=== PATIENT | female | born 2000 | race Caucasian/White ===

== ENCOUNTER 2020-04-24 11:25 | Emergency (ER) | payer SELFPAY ==
--- OUTSIDE RECORDS SUMMARY | 2020-04-24 11:30 | XMS REPORT | Continuity of Care Document ---
:2000 Author Organization [facility] t Address [facility] [place] [address] Care Team Providers Name Role Phone Nguyen ARMIJO, Louisa Primary Care Physician Ghazal ARMIJO, S Attending Clinician Anton JACOB Attending Clinician Rayray ARMIJO, Conchis Attending Clinician Nuvia ARMIJO Attending Clinician Lydia Huber MD Attending Clinician Kt Hernandez MD Attending Clinician Denzel BARRERA Attending Clinician Vanesa Lopez MD Attending Clinician Matthew ARMIJO S Attending Clinician Korin Guillermo MD Attending Clinician Alexander De La Vega Attending Clinician Taylor ARMIJO Attending Clinician Kevin Brown MD Attending Clinician Haider Becerra DO Attending Clinician Caden ARMIJO Attending Clinician Maxwell De La Fuente MD Attending Clinician hCristo Waters MD Attending Clinician Suzy Attending Clinician Unavailable Va Attending Clinician Unavailable [facility] Attending Clinician Unavailable Cherry HOUGH Attending Clinician Unavailable Ramiro Hernandez MD Attending Clinician Misty ARMIJO, April Attending Clinician David Muñoz DO Attending Clinician Aden Zavala MD Attending Clinician Cony Rubio RN Attending Clinician Unavailable Allen Garnett MD Attending Clinician Tushar Attending Clinician [phone] Josiah Attending Clinician [phone] SHIRA Attending Clinician Unavailable Nguyen Attending Clinician [phone] Romel Attending Clinician Unavailable Tiffany Attending Clinician Unavailable Saurav A Attending Clinician [phone] Wil Attending Clinician Unavailable Shira Foote Attending Clinician [phone] Albaro Attending Clinician Unavailable Jessika Attending Clinician [phone] Rashaad Attending Clinician [phone] Claude Attending Clinician Unavailable Conchita Attending Clinician Unavailable Mayur Attending Clinician Unavailable Ilir Attending Clinician Unavailable Vanesa Kee Attending Clinician [phone] Oskar MedAdherleanne Attending Clinician [phone] Kirsten Gallo Attending Clinician [phone] Antonio Marino Attending Clinician Unavailable Rey Attending Clinician Unavailable Ilir Attending Clinician Unavailable Norm Attending Clinician [phone] Curry Attending Clinician Unavailable Karlie Attending Clinician Unavailable Isis Attending Clinician Unavailable Abilio Attending Clinician Unavailable Gabriel Attending Clinician Unavailable Solitario Attending Clinician Unavailable Trey Moya Attending Clinician Unavailable Kavita Joyce Attending Clinician Unavailable Vaishnavi Echavarria MD Admitting Clinician Vanesa Lopez MD Admitting Clinician Korin Guillermo MD Admitting Clinician Taylor ARMIJO Admitting Clinician HERNAN Admitting Clinician Unavailable CADEN Admitting Clinician Unavailable Tushar Unavailable [phone] Va Unavailable Unavailable Saurav, A Unavailable [phone] Conchita Unavailable Unavailable Shira Foote Unavailable [phone] Norm Unavailable [id number] Payers Payer Name Policy Type Policy Number Effective Date Expiration Date Trey pop COVID19 HRSA [id number] 2019 [place] UNINSURED 00:00:00 [facility] TESTING AND TREATMENT [id number] [facility] UNINSURED TESTING AND TREATMENT [id number]-[facility] f-Pay [id number] 2018 2019 [facility] 00:00:00 00:00:00 [facility] Health [id number] 2017 2018 [facility] 00:00:00 00:00:00 [facility] Health Problems Condition Condition Condition Status Onset Resolution Last Treating Co mments Source Name Details Category Date Date Treatment Clinician Date Intractabl Intractabl Disease [place] nausea e nausea 10-01 Method i and and 00:00: st vomiting vomiting 00 Intractabl Intractabl Disease Active [place] vomiting e vomiting 09-29 Ma thodi 00:00: st 00 Dehydratio Dehydratio Disease Active [place] n 6 Methodi 00:00: st 00 Non-intrac Non-intrac Disease [facility] table table 6 Methodi vomiting vomiting 00:00: st 00 Lactic Lactic Disease Active [place] acid acid 6 Methodi acidosis acidosis 00:00: st 00 Pyelonephr Pyelonephr Disease Active [place] itis itis 6 Methodi 00:00: st 00 RSV (acute RSV (acute Disease [facility] bronchioli bronchioli 07-23 [facility] tis due to tis due to 00:00: st respirator respirator 00 y y syncytial syncytial virus) virus) Acute Acute Disease Active [place] diarrhea diarrhea 07-23 Method i 00:00: st 00 Hypokalemi Hypokalemi Disease Active H kesha a a 07-23 Methodi 00:00: st 00 Astigmatis Condition Active 2019-03-19 Tushar Jermaine m, 03-19 11:21:48 Giovanni Communi bilateral 00:00: ty 00 Health Hyperopia, Condition Active 2019-03-19 Tushar Srideviacy bilateral 1- 11:21:48 Giovanni Commu ni 00:00: ty 00 Health RUQ Condition Active 2019-03-14 Va, L egacy abdominal 03-14 20:14:01 Olegario Commu ni rigidity 00:00: ty 00 Health Abdominal Condition Active 2019-03-14 Va, [facility] pain, 03-14 20:14:01 Olegario Communi right 00:00: ty upper 00 Health quadrant Contracept Condition Active 2018-022019-03-14 Saurav [facility] kailash 2-18 08:31:28 Ancelmo A Communi management 00:00: ty 00 Health Implantabl Condition Active 2018-022019-03-14 Saurav [facility] e 2-18 08:31:28 Ancelmo A Communi subdermal 00:00: ty contracept 00 Health kailash removal Dysmenorrh Condition Active 2018-022019-03-14 Saurav [facility] ea 1-19 08:31:28 Ancelmo A Communi 00:00: ty 00 Health Pelvic Condition Active 2018-022019-03-14 Ivis Mg gacy pain 1-19 08:31:28 Ancelmo A Communi 00:00: ty 00 Health Contracept Condition Active 2018-022019-03-14 Jermaine Arango ion 1-19 08:31:28 Berlondrik Comm uni 00:00: a ty 00 Health Abdominal Abdominal Disease Active 2018-02 Jairo ston pain pain 1-16 Methodi 00:00: st 00 Annual Condition Active 2018-08-29 Ivis Arango exam (18+) 08-29 17:56:22 Berlondrik Communi 00:00: a ty 00 Health DEPRESSIVE Condition Active 2018-08-29 Dary, [facility] DISORDER, 6-14 15:44:59 Armida Finch ommuni UNSPECIFIE 00:00: ty D 00 Health GENERALIZE Condition Active 2018-08-29 Sridevi Footeacy D ANXIETY 6-14 15:44:59 Armida Finch ommuni DISORDER 00:00: ty 00 Health BMI => Condition Active 2018-08-29 Jermaine Zheng 95%ile for 6-13 15:44:59 Asa Comm uni age 00:00: ty 00 Health Irritable Condition Active 2018-08-03 Jermaine Arango bowel 07-13 19:41:24 Berlondrik Comm uni syndrome 00:00: a ty 00 Health Overweight Condition Active 2018-08-29 Jermaine Arango 07-13 17:56:22 Berlondrik Comm uni 00:00: a ty 00 Health History of Condition Active 2018-07-13 Jermaine Mg ovarian 07-07 16:31:47 Ancelmo A Communi cyst 00:00: ty 00 Health Screening Condition Active 2018-07-07 Jermaine Mg examinatio 07-07 09:52:11 Ancelmo A Comm uni n for 00:00: ty venereal 00 Health disease Pelvic Condition Active 2018-07-07 Saurav Le gacy pain 07-07 09:52:11 Ancelmo A Communi 00:00: ty 00 Health Irregular Condition Active 2018-07-07 Jermaine Mg menses 07-07 09:52:11 Ancelmo A Communi 00:00: ty 00 Health Allergies, Adverse Reactions, Alerts This patient has no known allergies or adverse reactions. Family History Family Member Diagnosis Comments Start Date Stop Date Source Maternal grandmother Cancer [place] [facility] Social History Social Habit Start Date Stop Date Quantity Comments Source History [facility] Alcohol Std Drinks Method ist History [facility] Alcohol Binge [facility] Sex Assigned At [place] [facility] Tobacco use and 2019-09-30 2019-09-30 Never used [place] exposure 00:00:00 00:00:00 [facility] Alcohol intake 2019-09-30 2019-09-30 Current drinker of Evergig 00:00:00 00:00:00 alcohol (finding) Methodi st sexual orientation 2019-03-14 2019-03-14 Heterosexual Lega [facility] 08:05:32 08:05:32 Health social history E&M 2019-03-14 2019-03-14 Single. She is 1 of BasharJobs 08:05:32 08:05:32 4 half siblings, Health second oldest.In a relationship for over a year, stable. City: [place]. State: [place]. Lives with boyfriend at his parents. Highest education level: high school graduate. 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 Sexual orientation: Heterosexual. Gender identity: Female. Sexually Active: yes. The patient denies any hx of legal problems, or current problems with the law. Trying to figure out katt. Pt enjoys crafts, meditation, sitting outside drug use, illicit 2019-03-14 2019-03-14 Never [facility] 08:05:32 08:05:32 Health alcohol use 2019-03-14 2019-03-14 Never [facility] 08:05:32 08:05:32 Health social history 2019-03-14 2019-03-14 reviewed today [facility] reviewed E&M 08:05:32 08:05:32 Health assessment of 2019-03-14 2019-03-14 Adequate [facility] unity health literacy 08:05:32 08:05:32 Health ([facility] 2014 Standards, 3C10) is there any 2019-03-14 2019-03-14 No [facility] Commu nity chance that you 08:05:32 08:05:32 Health could be ? Patient was 2018-08-29 2018-08-29 Counseled for [facility] munity counseled for 15:07:51 15:07:51 sexual health Health sexual safety safety. home/family 2018-08-04 2018-08-04 Lives with Legamol means situation, 09:41:34 09:41:34 boyfriend at his Health assessment parents. family support 2018-08-04 2018-08-04 She is 1 of 4 [facility] 09:41:34 09:41:34 siblings, second Health oldest.In a relationship for over a year, stable. History [facility] 2018-06-09 2018-06-09 1 [place] Alcohol Frequency 00:00:00 00:00:[address] Smoking Status Start Date Stop Date Source Never smoker Anthony Methodis t Ex-smoker (finding) 2019-03-14 08:05:32 2019-03-14 08:05:32 Lega [facility] Health Medications Ordered Filled Start Stop Current Ordering Indication Dosage Frequency Signature Comments Components Source Medication Medication Date Date Medication? Clinician (SIG) Name Name traZODone 50mg QD Take 50 mg H kesha (DESYREL) 09-29 by mouth Metho di 50 MG 20:22: 00:[address] tablet 29 :00 Patient is out of med ondansetron 2019-0 2020- No 4mg Q8H Take 4 mg Cruz ODT 09-29 by mouth Methodi (ZOFRAN-ODT 20:22: 00:[address] ) 4 MG 17 :00 (eight) disintegrat hours as ing tablet needed for nausea or vomiting. naproxen 2019-0 2020- No 500mg Q.5D Take 500 Jairo ston (NAPROSYN) 09-29 mg by Methodi 500 MG 20:22: 00:[address] tablet 14 :00 (two) times a day as needed for mild pain. hydrOXYzine 2019-0 2020- No 25mg QD Take 25 mg Cruz (ATARAX) 25 09-29 by mouth Met hodi MG tablet 20:22: 00:[address] 11 :00 Patient is out of med hydrOXYzine 2019-0 2020- No 10mg QD Take 10 mg Cruz (ATARAX) 10 09-29 by mouth Met hodi MG tablet 20:22: 00:[address] 08 :00 morning. Pt is out of med FLUoxetine 2020-0 2020- No 40mg QD Take 40 mg Cruz (PROzac) 40 09-29 by mouth Met hodi MG capsule 20:22: 00:[address] 01 :00 Patient is out of med promethazin 2020-0 2020- No 25mg Q6H Take 1 Jairo ston e 09-28 tablet (25 Methodi (PHENERGAN) 00:00: 00:00 mg total) st 25 MG 00 :00 by mouth tablet every 6 (six) hours as needed for nausea or vomiting for up to 30 days. vancomycin 2020-0 2020- No 125mg Q.25D Take 2.5 Cruz (FIRVANQ) 6- 06-13 mL (125 mg Met hodi 50 mg/mL 00:00: 23:59 total) by st recon soln 00 :00 mouth 4 oral (four) solution times a day for 10 days. norgestimat 2020-0 2020- No 1{tbl} QD Take 1 [place] e-ethinyl 07-23 06-02 tablet by Meth rk estradiol 13:55: 00:[address] (SPRINTEC, 02 :00 daily. 28,) 0.25-35 mg-mcg per tablet FLUoxetine 2019-2019- No 40mg QD Take 40 mg Cruz (PROzac) 20 07-23 by mouth Met hodi MG capsule 13:54: 00:[address] 21 :00 ondansetron 2019-0 2020- No 4mg Q8H Take 4 mg Cruz ODT 07-21 by mouth Methodi (ZOFRAN-ODT 14:22: 00:[address] ) 4 MG 01 :00 (eight) disintegrat hours as ing tablet needed for nausea or vomiting. albuterol 2019- 2020- No 2{puff} Q4H Inhale 2 Cruz (PROAIR 07-21 puffs Methodi HFA) 90 00:00: 00:[address] mcg/actuati 00 :00 (four) on inhaler hours as needed for wheezing for up to 30 days. ondansetron 2019- 2020- No 4mg Q8H Take 1 Jairo ston ODT 07-21 tablet (4 Methodi (ZOFRAN-ODT 00:00: 00:00 mg total) st ) 4 MG 00 :00 by mouth disintegrat every 8 ing tablet (eight) hours as needed for nausea or vomiting for up to 3 days. aluminum-ma 2019-0 2020- No 15mL [id number] Take 15 mL Cruz gnesium 07-21 [id number] by mouth 3 Methodi hydroxide 00:00: 00:00 3D (three) st (MAALOX) 00 :00 times a 200-200 day before mg/5 mL meals for suspension 5 days. naproxen 2019-0 2020- No 500mg Q.5D Take 1 [place] (NAPROSYN) 07-21 tablet Method i 500 MG 00:00: 00:00 ([address] tablet 00 :00 total) by mouth 2 (two) times a day as needed (pain) for up to 10 days. sulfamethox 2019-0 2020- No 1{tbl} Q.5D Take 1 [place] azole-trime 4-13 -18 tablet by Ma thodi thoprim 00:00: 23:[address] (BACTRIM 00 :00 (two) DS) 800-160 times a mg per day for 5 tablet days. smx-tmp DS (BACTRIM) 800-160 mg tabs (1tab q12 D10) benzonatate 2019- No 100mg Q8H Take 1 [place] (TESSALON) 4-02 05-02 capsule Metho di 100 MG 00:00: 23:59 ([address] capsule 00 :00 total) by mouth every 8 (eight) hours for 30 days. amoxicillin 2019- No 1{tbl} Q.5D Take 1 [place] -pot 4-02 04-12 tablet by Methodi clavulanate 00:00: 23:[address] (AUGMENTIN) 00 :00 (two) 875-125 mg times a per tablet day for 10 days. (TRAZODONE 2018-02 Yes Armida Silva 1{Table 1xD Take 1/2-1 [facility] HCL) 50 MG 2-18 Dary t} tab at Com talon TABS 00:00: bedtime as ty 00 needed for Health sleep. SPRINTEC 28 2018-02- No Ancelmo A 1 pill L egacy (NORGESTIMA 2-18 12-18 Saurav daily po C ommuni TE-ETH 00:00: 00:00 ty ESTRADIOL) 00 :00 Health 0.25-35 MG-MCG TABS (FLUOXETINE Yes Armida Silva 2{Capsu 1xD Take 2 [facility] HCL) 20 MG 8-29 Dary le} capsules C ommuni CAPS 00:00: by mouth ty 00 daily. Health (DICYCLOMIN Yes Radha M TAKE ONE [facility] E HCL) 20 8-29 Ehdaie (1) Communi MG TABS 00:00: TABLET(S) ty 00 BY MOUTH Health THREE TIMES A DAY TO FOUR TIMES DAILY. (HYDROXYZIN Yes Armida Silva 1{Table 2xD Take 1/2 - [facility] E HCL) 10 7-15 Dary t} 1 tab by Co mmuni MG TABS 00:00: mouth ty 00 twice Health daily as needed for anxiety (HYDROXYZIN 2018- No Take 1/2 - [facility] E HCL) 25 6-14 07-15 1 tablet Commu ni MG TABS 00:00: 00:00 twice a ty 00 :00 day only Health as needed for anxiety or sleep. PROZAC 2019-0 2019- No 1{Capsu 1xD Take 1 Legac y (FLUOXETINE 08-0415 le} capsule by Stef basilio HCL) 10 MG 00:00: 00:00 mouth ty CAPS 00 :00 daily. Health Vital Signs Vital Name Observation Time Observation Value Comments Source Systolic blood 2019-10-04 19:44:40 143 mm[Hg] [place] [facility] pressure Diastolic blood 2019-10-04 19:44:40 95 mm[Hg] [place] [facility] pressure Heart rate 2019-10-04 19:44:40 64 /min [place] [facility] Body temperature 2019-10-04 19:44:40 36.89 [place] [facility] Respiratory rate 2019-10-04 19:44:40 16 /min [place] [facility] Oxygen saturation in 2019-10-04 19:44:40 100 /min [place] [facility] Arterial blood by Pulse oximetry Body height 2019-09-30 20:21:00 162.6 cm [place] [facility] Body weight 2019-09-30 20:21:00 75.9 kg [place] [facility] BMI 2019-09-30 20:21:00 28.72 kg/m2 [place] [facility] oxygen saturation, 2019-03-14 08:05:32 99 % [facility] oximetry Health blood pressure, 2019-03-14 08:05:32 79 mm[Hg] Legac y [facility] diastolic Health blood pressure, 2019-03-14 08:05:32 127 mm[Hg] Legac y [facility] systolic Health respiratory rate E&M 2019-03-14 08:05:32 18 /[facility] rate 2019-03-14 08:05:32 78 /min [facility] C ommunity Health temperature site 2019-03-14 08:05:32 oral [facility] temperature E&M 2019-03-14 08:05:32 98.6 [degF] Legac y [facility] Health height in 2019-03-14 08:05:32 166.37 [facility] centimeters E&M Health weight E&M 2019-03-14 08:05:32 169.50 [lb_av] [facility] weight in kilograms 2019-03-14 08:05:32 77.05 kg L [facility] E& Health pulse rate 2019-02-07 10:29:03 88 [facility] rate E&M 2019-02-07 10:29:03 16 /min [facility] Health blood pressure, 2019-02-07 10:29:03 66 mm[Hg] Legac [facility] diastolic Health blood pressure, 2019-02-07 10:29:03 117 mm[Hg] Legac [facility] systolic Health oxygen saturation, 2019-02-07 10:29:03 99 % [facility] oximetry Health weight E&M 2019-02-07 10:29:03 164 [lb_av] [facility] weight in kilograms 2019-02-07 10:29:03 74.55 kg L [facility] E& Health pulse rate 2019-02-07 09:25:02 75 /min [facility] Health blood pressure, 2019-02-07 09:25:02 85 mm[Hg] Legac [facility] diastolic Health blood pressure, 2019-02-07 09:25:02 125 mm[Hg] Legac [facility] systolic Health weight E&M 2019-02-07 09:25:02 164.38 [lb_av] [facility] Health weight in kilograms 2019-02-07 09:25:02 74.72 kg L [facility] E& Health height E&M 2019-02-07 09:25:02 65.5 [in_i] [facility] Health blood pressure, 2019-01-09 14:59:45 82 mm[Hg] Legac [facility] diastolic Health blood pressure, 2019-01-09 14:59:45 134 mm[Hg] Legac [facility] systolic Health pulse rate 2019-01-09 14:59:45 88 /min [facility] Health respiratory rate E&M 2019-01-09 14:59:45 15 /min [facility] oxygen saturation, 2019-01-09 14:59:45 99 % [facility] oximetry Health weight E&M 2019-01-09 14:59:45 158.38 [lb_av] [facility] Health weight in kilograms 2019-01-09 14:59:45 71.99 kg L [facility] E&M Health blood pressure, 2019-01-09 08:16:09 85 mm[Hg] Legac y [facility] diastolic Health blood pressure, 2019-01-09 08:16:09 135 mm[Hg] Legac [facility] systolic Health respiratory rate E&M 2019-01-09 08:16:09 25 /min [facility] Health oxygen saturation, 2019-01-09 08:16:09 98 % I[facility] oximetry Health pulse rate 2019-01-09 08:16:09 97 /min [facility] temperature site 2019-01-09 08:16:09 oral Lega [facility] Health temperature E&M 2019-01-09 08:16:09 98.5 [degF] Legac y [facility] Health weight E&M 2019-01-09 08:16:09 160 [lb_av] [facility] weight in kilograms 2019-01-09 08:16:09 72.73 kg L [facility] E&M Health height E&M 2019-01-09 08:16:09 65.50 [in_i] [facility] blood pressure, 2018-09-04 13:39:31 76 mm[Hg] Legac [facility] diastolic Health blood pressure, 2018-09-04 13:39:31 122 mm[Hg] Legac [facility] systolic Health pulse rate 2018-09-04 13:39:31 79 /[facility] weight E&M 2018-09-04 13:39:31 174.80 [lb_av] [facility] weight percentile 2018-09-04 13:39:31 93 Leg [facility] Health weight in kilograms 2018-09-04 13:39:31 79.45 kg L [facility] E& Health height percentile 2018-09-04 13:39:31 69 Leg [facility] Health height E&M 2018-09-04 13:39:31 65.56 [in_i] [facility] oxygen saturation, 2018-08-29 15:07:51 98 % I[facility] oximetry Health blood pressure, 2018-08-29 15:07:51 78 mm[Hg] Legac y [facility] diastolic Health blood pressure, 2018-08-29 15:07:51 120 mm[Hg] Legac y [facility] systolic Health respiratory rate E&M 2018-08-29 15:07:51 14 /min [facility] Health pulse rate 2018-08-29 15:07:51 87 /[facility] temperature E&M 2018-08-29 15:07:51 99.8 [degF] [facility] weight E&M 2018-08-29 15:07:51 177.60 [lb_av] [facility] Health weight percentile 2018-08-29 15:07:51 94 Leg [facility] Health weight in kilograms 2018-08-29 15:07:51 80.73 kg L [facility] E& Health height percentile 2018-08-29 15:07:51 69 Leg [facility] Health height E&M 2018-08-29 15:07:51 65.56 [in_i] [facility] pressure, 2018-08-04 09:41:34 75 mm[Hg] Legac [facility] diastolic Health blood pressure, 2018-08-04 09:41:34 120 mm[Hg] [facility] systolic Health pulse rate 2018-08-04 09:41:34 86 /[facility] weight E&M 2018-08-04 09:41:34 184.60 [lb_av] [facility] Health weight percentile 2018-08-04 09:41:34 95 Leg [facility] Health weight in kilograms 2018-08-04 09:41:[address] [facility] Health height percentile 2018-08-04 09:41:34 69 Leg [facility] Health height E&M 2018-08-04 09:41:34 65.56 [in_i] [facility] oxygen saturation, 2018-08-03 10:23:54 99 % [facility] oximetry Health blood pressure, 2018-08-03 10:23:54 72 mm[Hg] Legac [facility] diastolic Health blood pressure, 2018-08-03 10:23:54 115 mm[Hg] Legac [facility] systolic Health respiratory rate E&M 2018-08-03 10:23:54 16 /min [facility] Health pulse rate 2018-08-03 10:23:54 67 /[facility] 2018-08-03 10:23:54 oral Lega [facility] Health temperature E&M 2018-08-03 10:23:54 98.1 [degF] Legac [facility] Health height in 2018-08-03 10:23:54 165.10 [facility] E[facility]M Health height percentile 2018-08-03 10:23:54 61 Leg [facility] Health weight E&M 2018-08-03 10:23:54 183.60 [lb_av] [facility] Health weight percentile 2018-08-03 10:23:54 95 Leg [facility] weight in kilograms 2018-08-03 10:23:54 83.45 kg L [facility] E& Health oxygen saturation, 2018-07-13 15:53:58 99 % [facility] oximetry Health blood pressure, 2018-07-13 15:53:58 75 mm[Hg] Legac [facility] diastolic Health blood pressure, 2018-07-13 15:53:58 134 mm[Hg] Legac [facility] systolic Health respiratory rate E&M 2018-07-13 15:53:58 18 /min [facility] pulse rate 2018-07-13 15:53:58 79 /min [facility] temperature site 2018-07-13 15:53:58 oral Lega [facility] Health temperature E&M 2018-07-13 15:53:58 99.7 [degF] [facility] weight E&M 2018-07-13 15:53:58 185.13 [lb_av] [facility] weight percentile 2018-07-13 15:53:58 96 Leg [facility] weight in kilograms 2018-07-13 15:53:58 84.15 kg L [facility] E& Health height percentile 2018-07-13 15:53:58 61 Leg [facility] height E&M 2018-07-13 15:53:58 65 [in_i] [facility], 2018-07-07 09:10:26 98 % [facility] blood pressure, 2018-07-07 09:10:26 71 mm[Hg] Legac [facility] diastolic Health blood pressure, 2018-07-07 09:10:26 135 mm[Hg] Legac [facility] systolic Health respiratory rate E&M 2018-07-07 09:10:26 18 /min [facility] pulse rate 2018-07-07 09:10:26 85 /min [facility] temperature site 2018-07-07 09:10:26 oral Lega cy [facility] Health temperature E&M 2018-07-07 09:10:26 98.3 [degF] Legac y [facility] weight E&M 2018-07-07 09:10:26 186.38 [lb_av] [facility] 2018-07-07 09:10:26 96 Leg acy [facility] weight in kilograms 2018-07-07 09:10:26 84.72 kg L [facility] E& Health height in 2018-07-07 09:10:26 [facility] height percentile 2018-07-07 09:10:26 61 Leg [facility] Procedures Procedure Date / Time Performing Clinician Source Performed CT ANGIOGRAM PE CHEST 2019-10-04 18:42:03 Shahid Negrete [facility] XR ABDOMEN 1 2019-10-04 17:03:08 Shahid Negrete [facility]ist TROPONIN 2019-10-04 12:17:00 Shahid Negrete [facility]ist CBC HEMOGRAM 2019-10-04 12:17:00 Shahid Negrete odist BASIC METABOLIC PANEL 2019-10-04 12:17:00 Shahid Negrete [facility] MAGNESIUM LEVEL 2019-10-04 12:17:00 Shahid Negrete Meth odist ESTIMATED GFR 2019-10-04 12:17:00 Shahid Negrete [facility]ist HEMOGLOBIN A1C 2019-10-04 12:17:00 Shahid Negrete Meth odist TROPONIN 2019-10-04 05:25:00 Shahid Negrete Meth odist TROPONIN 2019-10-03 23:54:00 Shahid Negrete Meth odist FL UGI W OR WO KUB 2019-10-03 12:05:13 Darin Becerril on [facility] XR CHEST 2 VW 2019-10-03 12:04:44 Shahid Negrete [facility]ist CBC HEMOGRAM 2019-10-03 09:20:00 Caden, Shahid Cruz [facility]ist BASIC METABOLIC PANEL 2019-10-03 09:20:00 [facility] D-DIMER 2019-10-03 09:20:00 Caden, Shahid Cruz [facility] TROPONIN 2019-10-03 09:20:00 Caden, Shahid [place] [facility] B NATRIURETIC PEPTIDE 2019-10-03 09:20:00 Caden, Shahidpooja Yadav n [facility] ESTIMATED GFR 2019-10-03 09:20:00 Caden, Shahid [place] [facility] THYROID STIMULATING HORMONE 2019-10-03 09:20:00 Caden, Shahid Cruz [facility] MAGNESIUM LEVEL 2019-10-03 09:20:00 Caden, Shahid [place] [facility] ECG 12-LEAD 2019-10-03 08:36:03 Caden, Shahid [place] [facility] MRI CHOLANGIOGRAM WO 2019-10-02 08:10:16 Caden, Shahid Cruz [facility] CONTRAST CBC HEMOGRAM 2019-10-02 06:38:00 Caden, Shahid [facility]ist COMPREHENSIVE METABOLIC 2019-10-02 06:38:00 Caden, Shahidpooja cervantes [facility] PANEL ESTIMATED GFR 2019-10-02 06:38:00 Caden, Shahid [place] MAGNESIUM LEVEL 2019-10-02 06:38:00 Caden, Shahid [facility] US PELVIC TRANSABDOMINAL 2019-10-01 22:24:27 Caden, Shahid Jairo starks [facility] US PELVIC TRANSVAGINAL 2019-10-01 22:24:27 [facility] US ABDOMEN COMPLETE 2019-10-01 22:19:18 Caden, Shahid Cruz [facility] CBC HEMOGRAM 2019-10-01 09:30:00 Caden, Shahid Cruz [facility]ist COMPREHENSIVE METABOLIC 2019-10-01 09:30:00 [facility] PANEL ESTIMATED GFR 2019-10-01 09:30:00 Caden Shahid [place] [facility] HCG QUALITATIVE, SERUM 2019-09-30 15:59:00 Bry Hazel on [facility] SCREEN Felipe ALCOHOL LEVEL, BLOOD 2019-09-30 15:59:00 Bry Hazel Felipe COVID-19 QUALITATIVE PCR 2019-09-30 15:34:00 Bry Hazel [facility] Felipe HC COMPLETE BLD COUNT 2019-09-30 15:19:00 Bry Hazel [facility] W/AUTO DIFF Felipe COMPREHENSIVE METABOLIC 2019-09-30 15:19:00 Bry Hazel [facility] PANEL Felipe LIPASE LEVEL 2019-09-30 15:19:00 Bry Hazel Meth odist Felipe ESTIMATED GFR 2019-09-30 15:19:00 Bry Hazel Meth odist Felipe CREATINE KINASE, TOTAL 2019-09-30 15:19:00 Bry Hazel on [facility] (CPK) Felipe CT ABDOMEN PELVIS W 2019-09-29 12:31:22 Armida Waters CONTRAST Christo HC COMPLETE BLD COUNT 2019-09-29 11:14:00 Armida Waters [facility] W/AUTO DIFF Christo COMPREHENSIVE METABOLIC 2019-09-29 11:14:00 Armida Waters [facility] PANEL Christo LIPASE LEVEL 2019-09-29 11:14:00 Armida Waters Meth odist Christo CREATINE KINASE, TOTAL 2019-09-29 11:14:00 Armida Waters on [facility] (CPK) Christo ESTIMATED GFR 2019-09-29 11:14:00 Armida Waters Meth odist Christo URINE CULTURE 2019-09-29 11:01:00 Armida Waters odist Christo URINALYSIS SCREEN AND 2019-09-29 10:43:00 Armida Waters [facility] MICROSCOPY, WITH REFLEX TO Christo CULTURE URINE DRUGS OF ABUSE SCREEN 2019-09-29 10:43:00 Armida Watersist Christo HCG QUALITATIVE, URINE 2019-09-29 10:43:00 Armida Waters on [facility] SCREEN Christo ECG ED PRELIMINARY 2019-09-29 10:34:14 Armida Waters M ethodist INTERPRETATION Christo ECG 12-LEAD 2019-09-29 10:27:13 Mushtaq Pham Met hodist HC COMPLETE BLD COUNT 2019-07-25 04:15:00 Howard Waller [facility] W/AUTO DIFF Maggie COMPREHENSIVE METABOLIC 2019-07-25 04:15:00 HerveHoward neil Matthew jackson [facility] PANEL Maggie LIPASE LEVEL 2019-07-25 04:15:00 Howard Waller Ma najmaodist Serrano ESTIMATED GFR 2019-07-25 04:15:00 HerveHoward neil Ma yang Serrano GASTROINTESTINAL PANEL 2019-07-24 23:47:00 ChristinHoward Jairo Serrano LACTIC ACID LEVEL, SEPSIS - 2019-07-24 13:14:00 New RiegelNii NOW AND REPEAT 2X EVERY 3 HOURS LACTIC ACID LEVEL, SEPSIS - 2019-07-24 11:35:00 New RiegelNii NOW AND REPEAT 2X EVERY [address] ABDOMEN PELVIS W 2019-07-24 11:14:55 New RiegelNii CONTRAST US PELVIC TRANSABDOMINAL 2019-07-24 10:45:00 New Riegel, Nii Irving US PELVIC TRANSVAGINAL 2019-07-24 10:45:00 New RiegelNii URINE CULTURE 2019-07-24 08:26:00 New RiegelNii julien Ma thodi BLOOD CULTURE, AEROBIC & 2019-07-24 08:07:00 New RiegelNii ANAEROBIC URINE DRUGS OF ABUSE SCREEN 2019-07-24 08:07:00 Darryl Hernandez BLOOD CULTURE, AEROBIC & 2019-07-24 08:06:00 New RiegelNii ANAEROBIC URINALYSIS SCREEN AND 2019-07-24 07:51:00 New RiegelNii MICROSCOPY, WITH REFLEX TO CULTURE HCG QUALITATIVE, URINE 2019-07-24 07:51:00 New RiegelNii SCREEN HC COMPLETE BLD COUNT 2019-07-24 07:00:00 New RiegelNii W/AUTO DIFF COMPREHENSIVE METABOLIC 2019-07-24 07:00:00 New RiegelNii PANEL LIPASE LEVEL 2019-07-24 07:00:00 New RiegelNii Ma najmaodist ESTIMATED GFR 2019-07-24 07:00:00 Nii Smith Ma thodist LACTIC ACID LEVEL, SEPSIS - 2019-07-24 07:00:00 Nii Smith NOW AND REPEAT 2X EVERY 3 HOURS CREATINE KINASE, TOTAL 2019-07-24 07:00:00 Nii Smith (CPK) [facility] CR[facility], E/M 30-74 2019-07-24 06:50:41 Nii Smith MINUTES XR CHEST 1 VW PORTABLE 2019-07-22 12:37:14 Misty, Michelle cervantes [facility] ECG ED PRELIMINARY 2019-07-22 12:37:08 MistyMichelle merlos INTERPRETATION INFLUENZA ANTIGEN TEST, 2019-07-22 12:10:00 MistyMichelle merlos REFLEX NEGATIVE TO RPP RESPIRATORY PATHOGEN PANEL 2019-07-22 12:10:00 Michelle Storeyist WITH COVID-19 ECG 12-LEAD 2019-07-22 12:01:25 MistyMichelle merlos Met hodist COVID-19 QUALITATIVE PCR 2019-07-22 12:00:00 MistyMichelle merlos [facility] HC COMPLETE BLD COUNT 2019-07-22 11:55:00 Michelle Storey on [facility] W/AUTO DIFF COMPREHENSIVE METABOLIC 2019-07-22 11:55:00 MistyMichelle merlos [facility] PANEL TROPONIN 2019-07-22 11:55:00 Michelle Storye Met hodist B NATRIURETIC PEPTIDE 2019-07-22 11:55:00 MistyMichelle merlos on [facility] ESTIMATED GFR 2019-07-22 11:55:00 Michelle Storey Met hodist HCG QUALITATIVE, SERUM 2019-07-22 11:55:00 Michelle Storey [facility] SCREEN URINE CULTURE 2019-06-04 13:18:00 Gaston Muñozist B. HCG QUALITATIVE, URINE 2019-06-04 13:02:00 Gaston Muñozist SCREEN B. URINALYSIS SCREEN AND 2019-06-04 13:02:00 Gaston Muñoz MICROSCOPY, WITH REFLEX TO B. CULTURE COVID BIOREF (NCOVB) 2019-05-24 17:40:00 Bry Hazelony XR CHEST 1 VW 2019-05-24 17:25:37 Bry Hazel odist Felipe GROUP A STREP, RAPID 2019-05-24 17:02:00 Bry Hazel ANTIGEN Felipe INFLUENZA ANTIGEN TEST, 2019-05-24 17:02:00 Bry Hazel REFLEX NEGATIVE TO RPP Felipe STREP SCREEN CULTURE 2019-05-24 17:02:00 Bry Hazel RESPIRATORY PATHOGEN PANEL 2019-05-24 17:02:00 Bry Hazel WITH COVID-19 Felipe Routine ophthalmological 2019-03-19 10:40:40 Giovanni Finley [facility] examination including Health refraction; new patient Diagnostic evaluation with 2018-08-04 10:59:17 Armida Foote Ma [facility] [address] [facility] Planned Activity Planned Date Details Comments Source Future Scheduled 2019-11-14 Screening for [facility] thodist Test 00:00:00 malignant neoplasm of cervix (procedure) [code = 008610248] Future Scheduled 2019-09-22 INFL[place]ENZA VACCINE [place] [facility] Test 00:00:00 [code = INFLUENZA VACCINE] Future Scheduled 2016 Hepatitis C Cruz Met hodist Test 00:00:00 screening (procedure) [code = 132633365] Future Scheduled 2014 CH[place]DIA SCREENING [place] [facility] Test 00:00:00 [code = CHLAMYDIA SCREENING] Future Scheduled 2014 COVID-19 VACCINE (1 [place] [facility] Test 00:00:00 of 2) [code = COVID-19 VACCINE (1 of 2)] Encounters Start End Encounter Admission Attending Care Care Encounter Source Date/Time Date/Time Type Type Clinicians Facility Department ID 2020-04-22 2020-04-22 Emergency Ghazal, TRAUMA [id number] 07:59:00 12:50:00 [facility] [id number] [id number] 2020-04-20 2020-04-20 Emergency Walton, TRAUMA 1.2.840.114 [id number] 14:46:00 18:33:00 [facility] [id number] 4.2.7.2.686 [id number] 2020-04-18 2020-04-19 Emergency Mary Harman 1.2.84 0.114 [id number] 21:04:00 17:30:00 Venkatesh Seo Conchis Marcelina 350.1.13.10 [facility] 4.2.7.2.686 [id number] 2020-03-05 2020-03-06 Emergency [place], Layo TRAUMA 1.2.840. 114 [id number] 23:03:00 11:08:00 Mary Ann teran [place] 350.1. 13.10 4.2.7.2.686 [id number] 2020-03-04 2020-03-04 Emergency Jovan Hernandez J TRAU[place] [id number] 04:03:00 16:47:00 Denzel, Audi-Robert [place] 350.1.13.10 [facility] 4.2.7.2.686 [id number] 014 2019-12-29 2019-12-30 Emergency Kye Castronie 1.2.840 .114 [id number] 13:13:00 13:10:00 Rylee Guillermo [address] [place] [address] 4.2.7.2.686 [id number] 2019-11-21 2019-11-22 Emergency Ilene Martinlore Munoz Sujatha 1.2.840 .114 [id number] 11:38:00 17:17:00 [facility] [place] 350.1.13.10 [facility] 4.2.7.2.686 [id number] 2019-09-30 2019-10-04 Inpatient [facility] [id number] [place] [address] 00:00:00 00:00:00 [facility]RISTOPH [facility] 2019-09-29 2019-09-29 Emergency [facility] [id number] [place] 00:00:00 00:00:00 ARMIDA [address] 2019-08-16 2019-08-16 Office HARRY Almonte Encounte r/ Legacy 00:00:00 00:00:00 Visit Rafael [id number] Communi [id number] Health 2019-07-30 2019-07-30 Office HARRY Almonte Encounte r/ Legacy 00:00:00 00:00:00 Visit Rafael [id number] Communi [id number] Health 2019-07-28 2019-07-28 [facility] Legacy 00:00:00 00:00:00 Visit Olegario [id number] [place] [id number] ty Health 2019-07-27 2019-07-27 Office [facility] / Legacy 00:00:00 00:00:00 Visit Olegario [id number] [place] [id number] Health 2019-07-25 2019-07-25 Office [facility] Enco unter/ Legacy 00:00:00 00:00:00 Visit Rafael Almonte [id number] Communi [id number] Health 2019-07-25 2019-07-25 Office [facility] / Legacy 00:00:00 00:00:00 Visit Olegario [id number] Com [place] [id number] Health 2019-07-24 2019-07-25 Inpatient [facility] [id number] [place] 00:00:00 00:00:00 CHRISTOPH Rodriguez [facility] 2019-07-24 2019-07-24 Office [facility] / Legacy 00:00:00 00:00:00 Visit Olegario [id number] Com [place] [id number] ty Health 2019-07-24 2019-07-24 Office [facility] Enco unter/ Legacy 00:00:00 00:00:00 Visit Rafael Almonte [id number] Communi [id number] ty Health 2019-07-23 2019-07-23 [facility] Legacy 00:00:00 00:00:00 Visit Olegario [id number] Com [place] [id number] Health 2019-07-22 2019-07-22 Emergency MISTY, [facility] [id number] 270 [place] 00:00:00 00:00:00 MICHELLE [address] 2019-07-22 2019-07-22 Office Olegario De Dios [facility] Enco unter/ Legacy 00:00:00 00:00:00 Visit AlmonteRafael [id number] Communi [id number] Health 2019-06-18 2019-06-18 Office Suzy [facility] Encounte r/ Legacy 00:00:00 00:00:00 Visit Rafael [id number] Communi [id number] Health 2019-06-15 2019-06-15 Office Ilene [facility] Encounter / Legacy 00:00:00 00:00:00 Visit Olegario [id number] [place] [id number] Health 2019-06-04 2019-06-04 Emergency NORINSKY, [facility] 064 [id number] [place] 00:00:00 00:00:00 GASTON [address] 2019-06-04 2019-06-04 Office Olegario De Dios [facility] Enco unter/ Legacy 00:00:00 00:00:00 Visit AlmonteRafael [id number] Communi [id number] Health 2019-05-24 2019-05-24 Emergency SHREE, KAROL [facility] 064 [id number] [place] 00:00:00 00:00:[address] 2019-03-19 2019-03-19 Office Tushar, [facility] Encount er/ Legacy 00:00:00 00:00:00 Visit Giovanni [id number] Com [place] [id number] ty Health 2019-03-19 2019-03-19 Office Tushar, [facility] Encount er/ Legacy 00:00:00 00:00:00 Visit Giovanni [id number] Com [place] 551598 ty Health 2019-03-19 2019-03-19 Office Tushar, [facility] Encount er/ Legacy 00:00:00 00:00:00 Visit Giovanni [id number] [place] 871567 ty Health 2019-03-19 2019-03-19 Office [facility]/ Legacy 00:00:00 00:00:00 Visit Niyah Rahman [id number] [facility] 632438 ty Health 2019-03-18 2019-03-18 Office [facility] En[facility] / Legacy 00:00:00 00:00:00 Visit Olegario [id number] [place] [id number] ty Health 2019-03-14 2019-03-15 Outpatient [facility] [id number] [place] 00:00:00 00:00:00 , JULIA [address] 2019-03-14 2019-03-14 Office [facility] / Legacy 00:00:00 00:00:00 Visit Olegario [id number] [place] [id number] ty Health 2019-03-14 2019-03-14 Office [facility] / Legacy 00:00:00 00:00:00 Visit Olegario [id number] [place] [id number] ty Health 2019-03-14 2019-03-14 Office Margaret Cedillo [facility] Enco unter/ Legacy 00:00:00 00:00:00 Visit Olegario De Dios [id number] Chinyere Hays 729674 ty Health 2019-03-14 2019-03-14 Office [facility] Encoun[facility]/ Legacy 00:00:00 00:00:00 Visit Lionel [id number] Krystin Pretty 779136 ty Health 2019-03-14 2019-03-14 Office [facility] / Legacy 00:00:00 00:00:00 Visit Olegario [id number] Com [place] [id number] ty Health 2019-03-14 2019-03-14 Office [facility] / Legacy 00:00:00 00:00:00 Visit Olegario [id number] [place] 739505 ty Health 2019-02-07 2019-02-07 Office HARRY Mg Encounter/ Legacy 00:00:00 00:00:00 Visit Ancelmo Balderrama [id number] [place] 397846 ty Health 2019-02-07 2019-02-07 Office Ancelmo Mg Enc ounter/ Legacy 00:00:00 00:00:00 Visit Darwin De La Torre [id number] Communi 321177 ty Health 2019-02-07 2019-02-07 Office HARRY De La Torre Encounte r/ Legacy 00:00:00 00:00:00 Visit Darwin [id number] Com tal[place] 901726 ty Health 2019-02-07 2019-02-07 Office Armida Foote ESTHER Encounter/ Legacy 00:00:00 00:00:00 Visit Layne Irvin [id number] Communi 512237 ty Health 2019-01-25 2019-01-25 Office HARRY Almonte [facility] Encounte r/ Legacy 00:00:00 00:00:00 Visit Rafael [id number] Communi 951914 ty Health 2019-01-10 2019-01-10 Office HARRY Cedillo Encounter/ Legacy 00:00:00 00:00:00 Visit Margaret [id number] [place] 802210 ty Health 2019-01-09 2019-01-09 Office HARRY Mg Encounter/ Legacy 00:00:00 00:00:00 Visit Ancelmo Balderrama [id number] [place] 523403 ty Health 2019-01-09 2019-01-09 Office HARRY Mg Encounter/ Legacy 00:00:00 00:00:00 Visit Ancelmo Balderrama [id number] [place] 232976 ty Health 2019-01-09 2019-01-09 Office HARRY Mg Encounter/ Legacy 00:00:00 00:00:00 Visit Ancelmo Balderrama [id number] [place] 649918 ty Health 2019-01-09 2019-01-09 Office HARRY Mg Encounter/ Legacy 00:00:00 00:00:00 Visit Ancelmo Balderrama [id number] [place] [id number] ty Health 2019-01-09 2019-01-09 Office [facility] Enc ounter/ Legacy 00:00:00 00:00:00 Visit Catherine Rosen [id number] Nabila Randolph 477286 ty Darwin De La Torre Paulina 2019-01-09 2019-01-09 Office ESTHER Arango LC Encounter/ Legacy 00:00:00 00:00:00 Visit Jorje [id number] Communi [id number] ty Health 2019-01-09 2019-01-09 Office Conchita [facility] LC Encounter/ Legacy 00:00:00 00:00:00 Visit Jorje [id number] Communi [id number] Health 2019-01-09 2019-01-09 Office Conchita [facility] LC Encounter/ Legacy 00:00:00 00:00:00 Visit Jorje [id number] Communi [id number] Health 2019-01-09 2019-01-09 Office Ancelmo Mg [facility] Enc ounter/ Legacy 00:00:00 00:00:00 Visit Margaret Cedillo [id number] CommunCatherine Ortega [id number] ty Nabila Neil [facility] Shira Merchant Rita McNeal, Darwin Redd Paulina 2019-01-08 2019-01-08 Office HARRY Mg Encounter/ Legacy 00:00:00 00:00:00 Visit Ancelmo Balderrama [id number] Com [place] [id number] [facility] 2019-01-06 2019-01-08 [facility] [id number] [place] 00:00:00 00:00:[address] [facility] 2018-12-12 2018-12-12 Office ESTHER Merchant ESTHER Encounter/ Legacy 00:00:00 00:00:00 Visit Shira [id number] Com [place] [id number] Health 2018-11-21 2018-11-21 Office Dary [facility] Encounte r/ Legacy 00:00:00 00:00:00 Visit Armida Silva [id number] [facility] [id number] [facility] 2018-11-14 2018-11-14 Office Radha Kee [facility] Enc ounter/ Legacy 00:00:00 00:00:00 Visit Carolina Caputo [id number] Communi [id number] Health 2018-10-24 2018-10-24 Office Doniadalberto Stephy Kirsten SANTANA LC Encounter/ Legacy 00:00:00 00:00:00 Visit Raslanny Marino Es [id number] [facility] Christel Le [id number] Health 2018-09-29 2018-09-29 Office ESTHER Mg ESTHER Encounter/ Legacy 00:00:00 00:00:00 Visit Ancelmo Balderrama [id number] [place] [id number] Health 2018-09-27 2018-09-27 Office HARRY Mg Encounter/ Legacy 00:00:00 00:00:00 Visit Ancelmo Balderrama [id number] [place] [id number] Health 2018-09-04 2018-09-04 Office Armiad Foote Encounter/ Legacy 00:00:00 00:00:00 Visit Elisha Hazel [id number] [facility] [id number] Health 2018-08-29 2018-08-29 Office HARRY Arango Encounter/ Legacy 00:00:00 00:00:00 Visit Jorje [id number] [facility] [id number] Health 2018-08-29 2018-08-29 Office HARRY Arango Encounter/ Legacy 00:00:00 00:00:00 Visit Jorje [id number] [facility] [id number] Health 2018-08-29 2018-08-29 Office Asa Zheng [facility] En counter/ Legacy 00:00:00 00:00:00 Visit Jorje Arango [id number] [facility] Ilan Zapien [id number] [facility] 2018-08-08 2018-08-08 Office Jazmine Ziegler ESTHER Encoun ter/ Legacy 00:00:00 00:00:00 Visit [id number] Com [place] [id number] Health 2018-08-04 2018-08-04 Office HARRY Foote Encounte r/ Legacy 00:00:00 00:00:00 Visit Armida Silva [id number] [facility] 196803 ty Health 2018-08-04 2018-08-04 Office Armida Foote Shira SANTANAH [facility] Encounter/ Legacy 00:00:00 00:00:00 Visit Elisha Hazel [id number] Communi Mariela Marinelli 250494 ty Health 2018-08-03 2018-08-03 Office Conchita, ESTHERH [facility] Encounter/ Legacy 00:00:00 00:00:00 Visit Jorje [id number] Communi 471363 ty Health 2018-08-03 2018-08-03 Office Conchita, ESTHERH [facility] Encounter/ Legacy 00:00:00 00:00:00 Visit Jorje [id number] Communi 892136 ty Health 2018-08-03 2018-08-03 Office Asa ZhengH [facility] En counter/ Legacy 00:00:00 00:00:00 Visit Shira Merchant [id number] Communi Jorje Arango 7106 90 ty Health 2018-08-03 2018-08-03 Office HARRY Knox [facility] Encounter/ Legacy 00:00:00 00:00:00 Visit Jesenia [id number] [place] 964988 ty Health 2018-08-03 2018-08-03 Office HARRY Knox [facility] Encounter/ Legacy 00:00:00 00:00:00 Visit Jesenia [id number] [place] 105644 ty Health 2018-07-18 2018-07-18 Office Jorje Arango [facility] Encounter/ Legacy 00:00:00 00:00:00 Visit Chinyere Urena [id number] Communi 340575 ty Health 2018-07-13 2018-07-13 Office Conchita, ESTHERH [facility] Encounter/ Legacy 00:00:00 00:00:00 Visit Jorje [id number] Communi 706050 ty Health 2018-07-13 2018-07-13 Office ESTHER ArangoH [facility] Encounter/ Legacy 00:00:00 00:00:00 Visit Jorje [id number] Communi 501092 ty Health 2018-07-13 2018-07-13 Office ESTHER ArangoH [facility] Encounter/ Legacy 00:00:00 00:00:00 Visit Jorje [id number] [facility] [id number] ty Health 2018-07-13 2018-07-13 Office HARRY Arango Encounter/ Legacy 00:00:00 00:00:00 Visit Jorje [id number] [facility] [id number] ty Health 2018-07-13 2018-07-13 Office Radha Kee Enc ounter/ Legacy 00:00:00 00:00:00 Visit Tona Rios [id number] [facility] Jorje Arango [phone] [id number] ty [facility] 2018-07-11 2018-07-11 Office HARRY Mg Encounter/ Legacy 00:00:00 00:00:00 Visit Ancelmo Balderrama [id number] [place] [id number] Health 2018-07-10 2018-07-10 Office HARRY Mg Encounter/ Legacy 00:00:00 00:00:00 Visit Ancelmo Balderrama [id number] [place] 576396 ty Health 2018-07-07 2018-07-07 Office HARRY Mg Encounter/ Legacy 00:00:00 00:00:00 Visit Ancelmo Balderrama [id number] [place] 221714 ty Health 2018-07-07 2018-07-07 Office HARRY Mg Encounter/ Legacy 00:00:00 00:00:00 Visit Ancelmo Balderrama [id number] [place] 460358 ty Health 2018-07-07 2018-07-07 Office HARRY Mg Encounter/ Legacy 00:00:00 00:00:00 Visit Ancelmo Balderrama [id number] [place] 203985 ty Health 2018-07-07 2018-07-07 Office Ancelmo Mg Enc ounter/ Legacy 00:00:00 00:00:00 Visit Catherine Rosen [id number] [facility] Health[facility]ona Black [id number] ty Shira [facility] Madelaine Moya 2018-06-28 2018-06-28 Office HARRY Joyce Encounte r/ Legacy 00:00:00 00:00:00 Visit Izabela Walls [id number] [place] [id number] [facility] 2018-06-09 2018-06-09 Office HARRY Mg [facility] Encounter/ Legacy 00:00:00 00:00:00 Visit Ancelmo Balderrama [id number] Jon talon [id number] [facility] 2018-06-09 2018-06-09 Office HARRY Mg [facility] Encounter/ Legacy 00:00:00 00:00:00 Visit Ancelmo Balderrama [id number] [place] [id number] [facility] Results Test Description Test Time Test Comments Results Result Sourc e Comments CT Angiogram Pe 2019-09-22 Interface, Vicenta n Chest [address] 18:49:54 Incoming - 10/04/2019 6:53 PM CDTEXAMINATION: CT ANGIOGRAM PE CHESTCLINICAL HISTORY: PE suspected intermediate prob positive D-dimerTECHNIQUE: PE PROTOCOL: CT angiographic images of the chest were obtained during intravenous administration of iodinated contrast. Computerized reformatted images and 3-D MIP images were also obtained and archived (CT pulmonary embolus protocol). CT imaging was performed with iterative reconstruction technique and/or automated exposure control to reduce radiation dose.COMPARISON: Chest radiograph dated 10/03/2019FINDINGS:[facility] ST:1. Pulmonary Arteries: No definite CT scan evidence of acute pulmonary embolus.2. Aorta: The thoracic aorta is nonaneurysmal3. Heart: The heart is normal in size.4. Pericardial Fluid: No pericardial effusion.5. Mediastinum: No enlarged mediastinal or hilar lymphadenopathy. No mediastinal mass.4. Airways: Central airways are patent.5. Lungs: No evidence of pneumonia. There is a 2 mm nodule in the subpleural aspect of the right lower lobe on series 302, image 72. This is likely postinfectious or postinflammatory in etiology.6. Pleural Fluid: No pleural effusions.7. Bones: Osseous structures intact. No destructive bony lesions.8. Upper Abdomen: No suspicious abnormalities.9. Other Findings: NoneIMPRESSION:No evidence of pulmonary embolism.HMRM-MPHYMAT XR Abdomen 1 Vw 2019-09-22 Interface[facility]enta n [address] 17:05:24 Incoming - 10/04/2019 5:08 PM CDTEXAMINATION: XR ABDOMEN 1 VWCLINICAL HISTORY: 18 years Female Evaluate the presesnce of contrast before CTCOMPARISON: None.IMPRESSION: There is a nonspecific bowel gas pattern. Large amount of barium in the colon extending from the cecum to the mid descending colonThere are no suspicious calcifications overlying the kidneys or expected course of the uretersThe osseous structures are within normal limitsThe lung bases are clear. Hemoglobin A1c 2019-10-04 13:15:17 Test Item Value Reference Range Interpretation Comme nts Hemoglobin A1C (test code = <4.7 4-5.6 HbA1c cutoffs for diagnosing 04524-7) diabetes:4.0% - 5.6% = normal5.7% - 6.4% = increased ris k for diabetes (prediabetes)9> =6.5% = [id number] for glycemic contro l (ADA 2016)< 7.0% Target for non adults with diabetes. More or less st ringent targets may be appropriate for individual patients. <7.5% Target for Children and adolescents wit h type 1 diabetes. [facility] ByihepdscLjxuykpb0626-46-54 12:56:34 Test Item Value Reference Range Interpretation Comments Troponin (test code = <0.006 0-0.04 [place] [address]-2) having a myocar dial infarction, josias alvarado with all other appro priate clinical measur es and actions includi ng ECG and other diagnosti cs as appropriate, me asure Ultra TnI at 0 hrs and at 3 hrs.Myocardia l infarction VERY LIKELYThe 0 hr TnI level is > 0.10 ng/mL --Myocardial in farction LIKELYThe 0 hr TnI level is > 0.04 ng/mL and 3 hr level is increa sed or decreased by at least 0.020 ng/mL -------Daniel cardial infarct ion VERY UNLIKELYBoth th e 0 hr and 3 hr TnI levels <= 0.04 ng/mL(within no rmal limits) OR 0 hr is > 0.04 ng/mL and 3 hr is increased OR de creased by less than 0.020 ng/mL [place] MethodistBasic metabolic [id number] 12:52:59 Test Item Value Reference Range Interpretation Comments Sodium (test code = 138 See_Comment [Automa liliane message] 2951-2) The system Tasted Menu generated this result transmit liliane reference range : 135 - 150 mEq/L. Th e reference range was not used to interpret this result as normal/abnormal . Potassium (test code = 3.4 See_Comment L [Aut omated message] 1553-3) The system Tasted Menu generated this result transmit liliane reference range : 3.5 - 5.0 mEq/L. Th e reference range was not used to interpret this result as normal/abnormal . Chloride (test code = 99 See_Comment [Auto mated message] 5-0) The system Tasted Menu generated this result transmit liliane reference range : 98 - 112 mEq/L. Th e reference range was not used to interpret this result as normal/abnormal . CO2 (test code = 22 mmol/L 24-31 L 2027-9) Anion gap (test code = 17@ANIO See_Comment H [Aut omated message] 63373-3) The system Tasted Menu generated this result transmit liliane reference range : 7 - 15 mEq/L. The reference range was not used to interpret this result as normal/abnormal . BUN (test code = 6 mg/dL 7-18 L 3094-0) Creatinine (test code = 0.70 mg/dL 0.5-0.9 2160-0) Glucose (test code = 86 mg/dL 65-100 2345-7) Calcium (test code = 9.4 mg/dL 8.3-10.2 71324-8) Lab Interpretation Abnormal (test code = 43348-0) [place] MethodistEstimated [id number] 12:52:58 Test Item Value Reference Range Interpretation Comments Estimated GFR (test >=90 mL/min/1.73 m2 [facility] Units code = 5488) InterpretationG 1 >=90 Normal or highG2 60-89 Mildly srfeuzrosL8j 45-59 Mildly to mode rately orgjvydjqG0f 30-44 Moderately to severely decreasedG4 15-29 Severely decre asedG5 <15 Kidn ey failureThe eGFR was calculated gala womack the Chronic Kidney Disease Epidemiology Co llaboration (CKD-EPI) equat ion. Interpretation is based on recommendations of the National Kidney Foundation-Kidn ey Disease Outcomes Qualit y Initiative (NKF-KDOQI) pub lished in 2013. [facility] MethodistMagnesium sfzyd1040-33-74 12:52:58 Test Item Value Reference Range Interpretation Comments Magnesium (test code = 77820-2) 1.80 mg/dL 1.6-2.6 [place] MethodistCBC bnavpmxc4829-95-59 12:32:25 Test Item Value Reference Range Interpretation Comments WBC (test code = 7.3 See_Comment [Automated message] 92823-2) The system Tasted Menu generated this result transmitted ref erence range: 4.2 - 11 .0 k/uL. The reference r kevin was not used to int erpret this result as normal/abnormal . RBC (test code = 4.60 m/uL 4.04-5.86 93521-2) HGB (test code = 13.5 g/dL 11.5-15.3 718-7) HCT (test code = 40.1 % 34-45 4544-3) MCV (test code = 87.2 fL 80-98 787-2) MCH (test code = 29.3 pg 27-34 785-6) MCHC (test code = 33.7 g/dL 31.5-36.5 786-4) RDW - SD (test code = 39.1 fL 37-51 53819-3) MPV (test code = 10.1 fL 7.4-10.4 80574-3) Platelet count (test 224 See_Comment [Autom ated message] code = 53972-6) The system [employer] generated this result transmitted ref erence range: 150 - 40 0 k/uL. The reference r kevin was not used to int erpret this result as normal/abnormal . Nucleated RBC (test 0.00 See_Comment [Automa liliane message] code = 80202-5) The system [employer] generated this result transmitted ref erence range: /100 WBC . The reference range was not used to interpr et this result as normal/abnormal . Anthony Cedillo UGI with or without [id number] 12:37:02Hm Interface, Radiology Results Incoming 10/03/2019 12:40 PM CDTEXAMINATION: FL UGI W OR WO KUBCLINICAL HISTORY: Esophageal refluxCOMPARISON: None.TECHNIQUE: UPPER GI SERIES was performed with effervescent granules and barium.FINDINGS:1. Esophagus: Esophagus was distensible. The mucosa and motility were within normal limits. There is no evidence of stricture.2. Gastroesophageal junction: Noevidence of hiatal hernia. Mild gastroesophageal reflux is present.3. Stomach: Normally distensible and demonstrates normal contours and mucosal pattern.4. Duodenum: Bulb and sweep are normal. The duodenal-jejunal junction is in the normal expected position.IMPRESSION:1.Mild gastroesophageal reflux is present.2. The esophagus has no mass lesion or ulceration.3. The stomach and duodenum are unremarkable.4. There is no ulceration or mass lesion.5. The stomach does not demonstrate any focal area ofgastritis.Fluoroscopy time: 1.6 minutes number of fluoroscopic images obtained: 22Total Dose 41.2 mGyHMSJ-1KF1209M2UVcbtzyc MethodistXR Chest 2 [id number] 12:13:04Hm Interface, Radiology Results 10/03/2019 12:16 PM CDTEXAMINATION: XR CHEST 2 VWCLINICAL HISTORY: chest painCOMPARISON: 07/22/2019.FINDINGS:Two views of the chest demonstrate normal cardiomediastinal silhouette. Pulmonary vasculature is within normal limits.No consolidation or pleural effusion is seen. There is no evidence of pneumothorax.Regional osseous structures is unremarkable.IMPRES BARBIE:No radiographic evidence of acute cardiopulmonary process or active disease of the chest.[id number] MethodistThyroid stimulating [id number] 10:21:43 Test Item Value Reference Range Interpretation Comments TSH (test code = 0.93 See_Comment [Automated message] The 3016-3) system which ge nerated this result transmit liliane reference range : 0.27 - 4.20 uIU/mL. Th e reference range was not u sed to interpret this result as normal/abnormal . [facility] MethodistB natriuretic fnahsyk9820-17-84 10:18:30 Test Item Value Reference Range Interpretation Comments BNP (test code = 48225-5) 25 pg/mL 0-100 [place] IigawhjgpG-xllrx4444-47-12 10:02:31 Test Item Value Reference Range Interpretation Comments D-dimer (test code = 0.42 See_Comment H Units a re ug/ml 44129-6) Fibrinogen Equi valent Unit.When combi reginald with low clinic al probability, D- dimer results of less than 0.5 ug/ml FEU h ave a good negative predictive valu e in excluding PE or DVT. For D-dimer res ults greater than 0. 5 ug/ml FEU furth er testing is isaias cated if PE or DVT is suspected clinically.Elev ated D-dimer results have been reported i n DVT, PE, and DIC holly es and may indicate th e presence of a c lot. D-dimer results may be elevated due to old age, pregna ncy, inflammatory diseases, traum a, post-operative states, sepsis, and malignancies. [Automated mess age] The system Tasted Menu generated this result transmitted ref erence range: 0.00 - 0 .40 ug/mL FEU. The reference range was not used to int erpret this result as normal/abnormal . Lab Interpretation (test Abnormal code = 49628-7) [place] MethodkylerECG [id number] 09:07:48 Test Item Value Reference Range Interpretation Comments Ventricular rate (test 63 code = 253) Atrial rate (test code = 63 255) NH interval (test code = 126 266) QRSD interval (test code 80 = 260) QT interval (test code = 412 264) QTC interval (test code 421 = 265) P axis 1 (test code = -30 267) QRS axis 1 (test code = 68 268) T wave axis (test code = 31 270) EKG impression (test Unusual P axis, code = 273) possible ectopic atrial rhythm-Abnormal ECG- Anthony MckeonistMRI Cholangiogram wo rljoctjj8659-08-11 08:19:29Hm Interface, Radiology Results Incoming - 10/02/2019 8:22 AM CDTEXAMINATION: MRI CHOLANGIOGRAM WOCONTRASTCLINICAL HISTORY: enlarged CBD nausea and VomitingTECHNIQUE: Multiplanar multisequence MR images of the abdomen were obtained without contrast. The lack of intravenous contrast reduces the sen sitivity of detecting solid organ disease. MRCP images were obtained with 3-D reconstructions on the acquisition scanner under concurrent supervision.COMPARISON: Ultrasound from 10/01/[address] from09/29/2019 IMPRESSION: Liver: The liver is normal. No focal mass.Gallbladder/Biliary: The gallbladder is normal. No gallstone identified. Common bile duct measures up to 6-7 mm with normal tapered narrowing at the level of the ampulla. There is no evidence of choledocholithiasis. There is no intrahepatic biliary duct dilation. Spleen: The spleen is not enlarged.Pancreas: Pancreas is unremarkable.Adrenal Glands: The adrenal glands are unremarkable.Kidneys: The kidneys are unremarkable. No mass, hydronephrosis.Vascular: The abdominal aorta is nonaneurysmal.Nodes: No enlarged retroperitoneal or mesenteric lymphadenopathy.Bowel: No bowel obstruction or inflammatory changes.Ascites/fluid collections: Noascites or fluid collections.Bone marrow:No suspicious marrow signal abnormality identified.Summary:No evidence of cholelithiasis or choledocholithiasis.[facility]-[id number] Methodist Comprehensive metabolic sebpu6547-92-51 07:33:29 Test Item Value Reference Range Interpretation Comments Sodium (test code = 138 See_Comment [Automa liliane message] 1431-2) The system Tasted Menu generated this result transmit liliane reference range : 135 - 150 mEq/L. Th e reference range was not used to interpret this result as normal/abnormal . Potassium (test code = 4.2 See_Comment [Aut omated message] 8977-3) The system Tasted Menu generated this result transmit liliane reference range : 3.5 - 5.0 mEq/L. Th e reference range was not used to interpret this result as normal/abnormal . Chloride (test code = 103 See_Comment [Auto mated message] 9895-0) The system Tasted Menu generated this result transmit liliane reference range : 98 - 112 mEq/L. Th e reference range was not used to interpret this result as normal/abnormal . CO2 (test code = 23 mmol/L 24-31 L 2027-10) Anion gap (test code = 12@ANIO See_Comment [Aut omated message] 67893-2) The system Tasted Menu generated this result transmit liliane reference range : 7 - 15 mEq/L. The reference range was not used to interpret this result as normal/abnormal . BUN (test code = 8 mg/dL 7-18 3094-0) Creatinine (test code = 0.80 mg/dL 0.5-0.9 2160-0) Glucose (test code = 93 mg/dL 65-100 2345-7) Calcium (test code = 9.0 mg/dL 8.3-10.2 27995-1) Protein (test code = 6.7 g/dL 6.3-8.3 2885-2) Albumin (test code = 3.7 g/dL 3.5-5 1751-7) A/G ratio (test code = 1.2 0.7-3.8 1759-0) Alkaline phosphatase 54 U/L 0-104 (test code = 6768-6) AST (test code = 22 U/L 10-35 1920-8) ALT (test code = 14 U/L 5-50 1742-6) Total bilirubin (test 0.9 mg/dL 0.2-1.2 code = 1974-2) Lab Interpretation Abnormal (test code = 57397-5) [facility] Pelvic Xnsjwhldpmgm6904-04-29 22:29:56Hm Interface, Radiology Results 10/01/2019 10:32 PM CDTEXAMINATION: US PELVIC TRANSABDOMINAL, US PELVIC TRANSVAGINALCLINICAL HISTORY: ovarian cystCOMPARISON: None.TECHNIQUE:Transabdominaland transvaginal ultrasound of the pelvis.FINDINGS:1.Uterus is 6.9 x 3.6 x 5.2 cm. Endometrial stripe is 3 mm. No fibroids are seen.2.Right ovary is 3.8 x 2 x 3 cm and contains multiple follicles and normal Doppler flow.3.Left ovary is 3.5 x 2.1 x 2.6 cm and contains normal Doppler flow and multiple follicles.4.In the right adnexa and in the cul-de-sac there is a complex area of fluid with internal echogenic material and may represent proteinaceous or bloody fluid.IMPRESSION:1.Small amount of fluid in the pelvis along the right adnexa likely due to bloody or proteinaceous fluid and may be related to ruptured ovarian cyst.2.Ovaries and uterus appear unremarkable.[facility] Pelvic Ptxwufeqnpkwby7708-00-89 22:29:56Hm Interface, Radiology Results 10/01/2019 10:32 PM CDTEXAMINATION: US PELVIC TRANSABDOMINAL, US PELVIC TRANSVAGINALCLINICAL HISTORY: ovarian cystCOMPARISON: None.TECHNIQUE:Transabdominaland transvaginal ultrasound of the pelvis.FINDINGS:1.Uterus is 6.9 x 3.6 x 5.2 cm. Endometrial stripe is 3 mm. No fibroids are seen.2.Right ovary is 3.8 x 2 x 3 cm and contains multiple follicles and normal Doppler flow.3.Left ovary is 3.5 x 2.1 x 2.6 cm and contains normal Doppler flow and multiple follicles.4.In the right adnexa and in the cul-de-sac there is a complex area of fluid with internal ec hogenic material and may represent proteinaceous or bloody fluid.IMPRESSION:1.Small amount of fluid in the pelvis along the right adnexa likely due to bloody or proteinaceous fluid and may be related to ruptured ovarian cyst.2.Ovaries and uterus appear unremarkable.[facility] MethodistUS Abdomen Tjbrkoow6304-13-66 22:22:14Hm Interface, Radiology Results 10/01/2019 10:25 PM CDTEXAM: US ABDOMEN COMPLETECLINICAL DATA: 18 years Female Abd pain unspecified, Nausea vomitingCOMPARISON: NONE.FINDINGS: LIVER: Theliver demonstrates normal echogenicity without focal mass or intrahepatic biliary ductal dilatation.MPV: Doppler evaluation of the portal vein demonstrates normal hepatopetal flow. 0.9 cm.GALLBLADDER: The gallbladder is without evidence of calculi. The gallbladder wall is not thickened and there isno pericholecystic fluid.CBD: 7 mm.PANCREAS: The visualized portions of the pancreas are within normal limits.SPLEEN: The spleen is homogeneous and not enlarged measuring 10.2 x 4.6 x 4.6 cm cmRIGHTKIDNEY: The right kidney is normal in size and echogenicity. There is no evidence of mass, calculi,or hydronephrosis. The right kidney measures 10.4 X 4.5 X 5.7 cm.LEFT KIDNEY: The left kidney is normal in size and echogenicity. There is no evidence of mass, calculi, or hydronephrosis. The left kidney measures 10.9 X 5.2 X 4.8 cm.AORTA: The visualized upper abdominal aorta demonstrates no evidence of ectasia or aneurysm.IVC: The visualized portions of the inferior vena cava are unremarkable.ASCITES: No abnormal abdominal fluid collections are visualized. There is no evidence of ascites.PLEURAL EFFUSION: There are no pleural effusions.IMPRESSION:1. No acute abnormality identified in the abdomen.2.No gallstones and no evidence of acute cholecystitis.3.The common bile duct is mildly dilated measuring 7 mm in diameter. Consider evaluation with MRCP if clinically indicated.[facility]-KK94HCNYWyyaftr MethodistCOVID-19 qualitative PCR 2019-10-01 00:20:13 Test Item Value Reference Range Interpretation Comments Interpretation (test Negative results do code = 4563706) not preclude 2019-nCoV infection and should not be used as the sole basis for treatment or other patient management decisions. Negative results must be combined with clinical observations, patient history, and epidemiological information. COVID-19 qualitative Not-Detected Not-Detected PCR result (test code = 44842-6) COVID-19 qualitative See link below for C ase Number: PCR (test code = PDF Lab Report [id number]) [facility] MethodistUrine tbveilh8705-37-97 17:55:43 Test Item Value Reference Range Interpretation Comments Urine culture Mixed darian Specimen isolate (test <=10-3 col/cc InformationSp ecimen code = 88737-4) Source: Urin eSpecimen Site: [facility] MethodistCreatine kinase, total (CPK)2019-09-30 17:42:27 Test Item Value Reference Range Interpretation Comments Creatine kinase (test code = 2157-6) 334 U/L 26-192 H Lab Interpretation (test code = Abnormal 49970-9) [place] MethodistLipase ustyh9265-42-89 16:59:03 Test Item Value Reference Range Interpretation Comments Lipase (test code = 3040-3) 23 U/L 13-60 [place] MethodistAlcohol level, hgbyz4236-13-31 16:57:59 Test Item Value Reference Range Interpretation Comments Alcohol percent None Detected See_Comment [Automated message] (test code = The system [facility] h 5643-2) generated this result transmitted ref erence range: %. The reference range was not used to int erpret this result as normal/abnormal . [place] [facility] qualitative, serum uyoapl9930-11-62 16:50:49 Test Item Value Reference Range Interpretation Comments hCG qualitative, Negative The nicholas yani stated serum (test code = sensitivi ty of HcG test 8-8) for serum is >/ = 10 mIU/ml and urine is >/ = 20mIU/ml. [place] [facility] with platelet and aayzyqigaqnp5548-81-94 16:40:45 Test Item Value Reference Range Interpretation Comments WBC (test code = 10.0 See_Comment [Automated message] 61597-4) The system Tasted Menu generated this result transmit liliane reference range : 4.2 - 11.0 k/uL. Th e reference range was not used to interpret this result as normal/abnormal . RBC (test code = 4.83 m/uL 4.04-5.86 90658-8) HGB (test code = 718-7) 14.3 g/dL 11.5-15.3 HCT (test code = 4544-3) 42.8 % 34-45 MCV (test code = 787-2) 88.6 fL 80-98 MCH (test code = 785-6) 29.6 pg 27-34 MCHC (test code = 786-4) 33.4 g/dL 31.5-36.5 RDW - SD (test code = 41.6 fL 37-51 81174-5) MPV (test code = 10.4 fL 7.4-10.4 70429-3) Platelet count (test 299 See_Comment [Autom ated message] code = 14629-1) The system The [employer] [facility] generated this result transmit liliane reference range : 150 - 400 k/uL. The reference range was not used to interpret this result as normal/abnormal . Nucleated RBC (test code 0.00 See_Comment [A utomated message] = 67336-8) The system [employer] generated this result transmit liliane reference range : /100 WBC. The reference range was not used to interpret this result as normal/abnormal . Neutrophils (test code = 87.7 % 36-66 H 96976-0) Lymphocytes (test code = 4.9 % 24-44 L 39185-1) Monocytes (test code = 6.9 % 0-6 H 93303-7) Eosinophils (test code = 0.0 % 0-6 78384-3) Basophils (test code = 0.2 % 0-1.2 08582-0) Immature granulocytes 0.3 % 0-1 (test code = 85302-5) Lab Interpretation (test Abnormal code = 11094-8) [place] MethodistCT Abdomen Pelvis W Hvqjfpuk6243-09-77 12:33:52Hm Interface, Radiology Results 09/29/2019 12:36 PM CDTEXAMINATION: CT ABDOMEN PELVIS W CONTRASTCLINICAL HISTORY: 18 yearsFemale right sided lower abd painTECHNIQUE: Multiple axial images of the abdomen and pelvis were obtained following intravenous administration of iodinated contrast. Sagittal and coronal computerized reformatted images were also obtained. CT imaging was performed with iterative reconstruction techniques and/or automated exposure control to reduce radiation dose. COMPARISON: None.IMPRESSION:LUNG BASES:The lung bases are free of acute disease.ABDOMEN:Liver: The liver is normal. No focal mass.Gallbladder/Biliary: The gallbladder is normal. There is no evidence of intra or extrahepatic biliary ductal dilatation.Spleen: The spleen is not enlarged.Pancreas: The pancreasis unremarkable.Adrenal Glands: The adrenal glands are unremarkable.Kidneys: The kidneys are unremarkable. No mass, hydronephrosis or calculi.Vascular: The abdominal aorta is nonaneurysmal.Nodes: No enlarged retroperitoneal or mesenteric lymphadenopathy.Bowel: There is no evidence of appendicitisAscites/fluid collections: No ascites or fluid collections.PELVIS:Small 1.7 cm cyst in the right ovary with small follicles bilaterally. Trace free fluid in the pelvis MUSCULOSKELETAL: No suspicious osseous lesions. SUMMARY:*No evidence of appendicitis*Small 1.5 cm cyst in the right ovary with smaller follicles present. Trace free fluid in the pelvis [facility] drugs of abuse prafcr6179-43-78 11:15:26 Test Item Value Reference Interpretation Comments Range Amphetamine screen, Negative urine (test code = 3349-8) Barbiturate screen, Negative urine (test code = 3377-9) Benzodiazepine Negative screen, urine (test code = 3390-2) Cocaine screen, Negative urine (test code = 3397-7) Methadone Negative metabolite (EDDP), urine (test code = 56966-0) Opiates screen, Negative urine (test code = 0409-4) Oxycodone screen, Negative urine (test code = 02191-5) Phencyclidine Negative screen, urine (test code = 3936-2) Cannabinoid screen, Positive A Drug scr een minimum urine (test code = concentra tion of 3427-2) detectabilityAm phetamines 1000 ng/mLBarbiturat es 200 ng/mLBe nzodiazepines 300 ng/mLCocaine 300 ng/mLMethadone 300 ng/mLOp iates 300 ng/mLOxycodone 300 ng/mLPh encyclidine 25 ng/mLCannabinoi ds 50 ng/mLTr icyclics 1000 ng/mLResults are from screen ing tests and should only be used for medical evaluat ion. Drug testing for leg al purposes requires defini tive (or confirmatory) t esting methods, which are available upon request. C ontact the laboratory if d efinitive testing is requ ired. Lab Interpretation Abnormal (test code = 38194-7) [place] MethodistUrinalysis screen and microscopy, with reflex to culture 2019-09-29 11:01:30 Test Item Value Reference Range Interpretation Comments Specimen site (test Clean catch code = 1672543) Color, UA (test code = Yellow 5778-6) Appearance, UA (test Clear code = 5767-9) Specific gravity, UA 1.024 1.001-1.035 (test code = 5811-5) pH, UA (test code = 5.0 5.0-8.5 5803-2) Protein, UA (test code Negative Negative = 00718-7) Glucose, UA (test code Negative Negative = 49332-0) Ketones, UA (test code 2+ Negative A = 2514-8) Bilirubin, UA (test Negative Negative code = 5770-3) Blood, UA (test code = Moderate Negative A 5794-3) Nitrite, UA (test code Negative Negative = 5802-4) Urobilinogen, UA (test Negative <2.0 code = 42678-7) Leukocyte esterase, UA Trace Negative A (test code = 5799-2) Epithelial cells, UA Many See_Comment [Autom ated (test code = 5787-7) message ] The system which generated this result transmitted reference range : /HPF. The refer ence range was not u sed to interpret th is result as normal/abnormal . WBC, UA (test code = 11 See_Comment H [Autom ated 5821-4) message] The sy stem which generated this result transmitted reference range : 0 - 5 /HPF. The reference range was not used to interpret this result as normal/abnormal . RBC, UA (test code = 4 See_Comment [Autom ated 56971-8) message] The sy stem which generated this result transmitted reference range : 0 - 5 /HPF. The reference range was not used to interpret this result as normal/abnormal . Bacteria, UA (test code None seen None seen = 93218-6) Yeast, UA (test code = None seen 73712-1) Yeast with None seen pseudohyphae, UA (test code = 18546-3) Lab Interpretation Abnormal (test code = 08117-4) [facility] qualitative, urine cppeic1479-50-61 10:57:53 Test Item Value Reference Range Interpretation Comments hCG qualitative, Negative Negative The [facility] stated urine (test code = sensitivi ty of HcG test 2105-) for serum is >/ = 10 mIU/ml and urine is >/ = 20mIU/ml. [facility] Preliminary Interpretation - Not an [id number] 10:34:14Armida Waters MD 10/11/2019 11:01 [facility] Preliminary Interpretation - Not an OrderPerformed by: Armida Waters MDAuthorized by: Armida Waters MD ECG reviewed by ED Physician in the absence of a morning news producer: yes Interpretation: Interpretation: non-specific Quality: Tracing quality: Limited by artifactRate: ECG rate: 81 ECG rate assessment: normal Rhythm: Rhythm: sinus rhythm Ectopy: Ectopy: none QRS: QRS axis: Normal QRS intervals: NormalST segments: ST segments: NormalT waves: T waves: non-specificPhoenix MethodistBlood culture, aerobic & anaerobic 2019-07-29 11:33:04 Test Item Value Reference Range Interpretation Comments Blood culture No growth Specimen isolate (test after 5 days InformationSpe cimen code = 600-7) of Source: BloodS pecimen incubation. Site: Periphera l Arm Right [place] MethodistGastrointestinal frnzy0334-63-54 04:55:03 Test Item Value Reference Interpretation Comments Range Adenovirus 40/41 PCR Not Detected Specime n (test code = 7113) Informati onSpecimen Source: StoolSp ecimen Site: Nonpreser emeka Astrovirus PCR (test Not Detected code = 4790) Campylobacter PCR Not Detected (test code = 7114) Clostridioides Detected A difficile PCR (test code = 7115) Cryptosporidium PCR Not Detected (test code = 7116) Cyclospora Not Detected cayetanensis PCR (test code = 7117) Enteroaggregative E Not Detected coli PCR (test code = 4784) Entamoeba histolytica Not Detected PCR (test code = 7118) Enteroinvasive E coli Not Detected PCR (test code = 4788) Enteropathogenic E Detected A coli PCR (test code = 4785) Norovirus PCR (test Not Detected code = 7119) Plesiomonas Not Detected shigelloides PCR (test code = 4782) Rotavirus PCR (test Not Detected code = 0327003) Salmonella PCR (test Not Detected code = 4783) Sapovirus PCR (test Not Detected code = 4791) Enterotoxigenic E coli Not Detected PCR (test code = 4786) Shigatoxin producing E Not Detected coli PCR (test code = 4787) E coli O157 PCR (test Not Reported code = 7120) Vibrio PCR (test code Not Detected = 7121) Vibrio cholerae PCR Not Detected (test code = 7122) Yersinia Not Detected enterocolitica PCR (test code = 7123) Giardia lamblia PCR Not Detected (test code = 7124) Lab Interpretation Abnormal (test code = 07512-4) [facility] MethodistLactic acid level, SEPSIS - Now and repeat 2x every 3 hours 2019-07-24 13:23:59 Test Item Value Reference Range Interpretation Comments Lactic acid (test code = 90338-3) 1.1 mmol/L 0.5-2.2 [facility] MethodistCRITICAL [id number] 06:50:41Darryl Hernandez MD 07/24/2019 2:27 PMCritical CarePerformed by: Nii Smith III, RETURN CLERK-CAut horized by: Darryl Hernandez MD Critical care provider statement: Critical care time (minutes): 35 Critical care time was exclusive of: Separately billable procedures and treating other patients Critical care was necessary to treat or prevent imminent or life-threatening deterioration of thefollowing conditions: Sepsis and dehydration Critical care was time spent personally by me on the following activities: Blood draw for specimens, development of treatment plan with patient or surrogate, discussions with consultants, discussions with primary provider, evaluation of patient's response to treatment, examination of patient, obtaining history from patient or surrogate, ordering and performing treatments and interventions, ordering and review of laboratory studies, ordering and review of radiographic studies, pulse oximetry, re-evaluation of patient's condition, review of old charts and interpretation of cardiac output measurements Abdirahman 'yes' if you are taking over critical care for this patient from another provider.: [facility]May[facility] Hospitalespiratory pathogen [id number] 20:00:04 Test Item Value Reference Interpretation Comments Range Adenovirus PCR Not Detected Specimen (test code = 7092) Informati onSpecimen Source: NasopharyngealS pecimen Site: Left Coronavirus HKU1 Not Detected PCR (test code = 7093) Coronavirus NL63 Not Detected PCR (test code = 7094) Coronavirus 229E Not Detected PCR (test code = 7095) Coronavirus OC43 Not Detected PCR (test code = 7096) Human Not Detected metapneumovirus PCR (test code = 7097) Human Not Detected rhinovirus/enterovi wesley PCR (test code = 7098) Influenza A PCR Not Detected (test code = 7099) Influenza A/H1 PCR Not Reported (test code = 7100) Influenza A/H3 PCR Not Reported (test code = 7102) Influenza A/H1-2009 Not Reported PCR (test code = 7101) Influenza B PCR Not Detected (test code = 7104) Parainfluenza virus Not Detected 1 PCR (test code = 7105) Parainfluenza virus Not Detected 2 PCR (test code = 7106) Parainfluenza virus Not Detected 3 PCR (test code = 7107) Parainfluenza virus Not Detected 4 PCR (test code = 7108) Respiratory Detected A syncytial virus PCR (test code = 7109) Bordetella Not Detected pertussis PCR (test code = 4358984) Bordetella Not Detected parapertussis PCR (test code = 3859115) Chlamydia Not Detected pneumoniae PCR (test code = 3753) Mycoplasma Not Detected pneumoniae PCR (test code = 7110) Influenza A no sub Not Reported type PCR (test code = 7127) Lab Interpretation Abnormal (test code = 19103-0) [facility] MckeonistInfluenza antigen test, reflex negative to [id number] 19:56:36 Test Item Value Reference Interpretation Comments Range Influenza Negative for Specimen antigen (test Influenza A/B InformationSp ecimen Source: code = 65170-7) antigen. Nasopharynge alSpecimen Site: Left [facility] MethodistXR Chest 1 Vw [id number] 12:43:17Hm Interface, Radiology Results 07/22/2019 12:46 PM CDTEXAMINATION: XR CHEST 1 VW PORTABLECLINICAL HISTORY: SOB fevers COVID exposureCOMPARISON: May 24, 2019IMPRESSION:Lines: NoneLungsand pleura: No consolidations. No pleural effusion or pneumothorax.Heart and mediastinum: Stable appearance of cardiomediastinal silhouette. Bones: No suspicious osseous lesions. [facility] CITYJ-[id number] MethodistStrep screen [id number] 10:05:31 Test Item Value Reference Range Interpretation Comments Strep screen No beta hemolytic Specimen culture Streptococci InformationSpec imen isolate (test isolated Source: Throat Specimen code = 2246) Site: Not other alvarado specified [facility] MethodistGroup A strep, rapid [id number] 10:05:31 Test Item Value Reference Interpretation Comments Range Group A Negative for Group Specimen strep, rapid A Streptococcus InformationS pecimen antigen antigen. Source: ThroatS pecimen result (test Site: Not other alvarado code = specified [id number]) [facility] MethodistCOVID BioRef ([facility]2019-05-27 20:54:16 Test Item Value Reference Range Interpretation Comments COVID BioRef Not Detected Not Detected Testing perform ed at (NCOVB) [facility] [address] (test code = [place] [address]-5) [address] NOTE: Ple ase consider re-collection o f a new specimen, if cl inically indicated. NOTE : The COVID-19 assay has been cleared by the U.S. Food and DrugAdministrat ion under the Emergency Use A uthorization (EUA). [facility] is designated as a high complexity labo ratory by the ClinicalLaborat ory Improvement Amendments of 1 988(CLIA) and is qualified to performthis test. ASSAY INF ORMATION: Real Time RT-PCR [facility] MethodistXR Chest 1 [id number] 17:26:52Hm Interface, Radiology Results - 05/24/2019 5:29 PM CDTEXAMINATION: XR CHEST 1 VWCLINICAL HISTORY: SOBCOMPARISON: 03/14/2019IMPRESSION:1.Lungs are clear.2.Mediastinal contours and cardiac silhouette are unremarkable.3.No acute osseous abnormality.[id number] Methodistblood in urine (hemoglobin) by [id number] 08:05:32 Test Item Value Reference Range Interpretation Comments blood in urine (hemoglobin) by dipstick 3+ (test code = 4998) [facility], semiquantitative (dipstick)2019-03-14 08:05:32 Test Item Value Reference Range Interpretation Comments protein, urine, semiquantitative negative (dipstick) (test code = 1753-3) [facility], evmgzhiwgtuajqcn7574-12-56 08:05:32 Test Item Value Reference Range Interpretation Comments beta HCG, urine, semiquantitative negative (test code = 2106-3) [facility] Centerglucose, urine, wgfmiljrdfhlfnvr2799-86-57 08:05:32 Test Item Value Reference Range Interpretation Comments glucose, urine, semiquantitative negative (test code = 5792-7) [facility] Centerbilirubin, mdkww2169-79-37 08:05:32 Test Item Value Reference Range Interpretation Comments bilirubin, urine (test code = negative 5770-3) [facility] Centerketones, urine, by test [id number] 08:05:32 Test Item Value Reference Range Interpretation Comments ketones, urine, by test strip (test negative code = 5797-6) [facility] HealthpH, urine, puftktobrchrhqmn4433-84-92 08:05:32 Test Item Value Reference Range Interpretation Comments pH, urine, semiquantitative (test code 5.5 = 5803-2) [facility] Centernitrite, urine, pregxzuvzbjmxeps8851-16-19 08:05:32 Test Item Value Reference Range Interpretation Comments nitrite, urine, semiquantitative negative (test code = 5802-4) [facility] Centerurobilinogen, urine, semiquantitative (dipstick) 2019-03-14 08:05:32 Test Item Value Reference Range Interpretation Comments urobilinogen, urine, negative semiquantitative (dipstick) (test code = 5818-0) [facility] Centerspecific gravity, [id number] 08:05:32 Test Item Value Reference Range Interpretation Comments specific gravity, urine (test code = 1.015 5811-5) [facility] Centerleukocyte esterase, urine, by etwviamc9284-37-64 08:05:32 Test Item Value Reference Range Interpretation Comments leukocyte esterase, urine, by negative dipstick (test code = 5799-2) [facility] Centerappearance, [id number] 08:05:32 Test Item Value Reference Range Interpretation Comments appearance, urine (test code = 5767-9) clear [facility] Centerurine [id number] 08:05:32 Test Item Value Reference Range Interpretation Comments urine color (test code = 5778-6) light yellow [facility] CenterNeisseria gonorrhoeae DNA [id number] 16:56:00 Test Item Value Reference Range Interpretation Comments Neisseria gonorrhoeae DNA probe Negative Negative (test code = 14032-9) [facility] Centerchlamydia DNA [id number] 16:56:00 Test Item Value Reference Range Interpretation Comments chlamydia DNA probe (test code = Negative Negative 06156-2) [facility] Centerlipase, [id number] 16:45:00 Test Item Value Reference Range Interpretation Comments lipase, serum (test code = 3040-3) 24 U/L 14-72 [facility] Centeramylase, [id number] 16:45:00 Test Item Value Reference Range Interpretation Comments amylase, serum (test code = 1798-8) 64 1/L 31-124 [facility] Centeralanine aminotransferase (SGPT), [id number] 16:45:00 Test Item Value Reference Range Interpretation Comments alanine aminotransferase (SGPT), serum 13 1/L 0-32 (test code = 1742-6) [facility] Centeraspartate aminotransferase (SGOT), [id number] 16:45:00 Test Item Value Reference Range Interpretation Comments aspartate aminotransferase (SGOT), 17 1/L 0-40 serum (test code = 1920-8) [facility] Healthalkaline phosphatase, [id number] 16:45:00 Test Item Value Reference Range Interpretation Comments alkaline phosphatase, serum (test code 48 1/L 39-117 = 1783-0) [facility] Healthbilirubin, serum, [id number] 16:45:00 Test Item Value Reference Range Interpretation Comments bilirubin, serum, total (test code 0.2 mg/dL 0.0-1.2 = 1975-2) [facility] Healthalbumin/globulin ratio, [id number] 16:45:00 Test Item Value Reference Range Interpretation Comments albumin/globulin ratio, serum (test 1.5 1.2-2.2 code = 1759-0) [facility] Healthglobulin, [id number] 16:45:00 Test Item Value Reference Range Interpretation Comments globulin, serum (test code = 2336-6) 2.8 1.5-4.5 [facility] Healthalbumin, [id number] 16:45:00 Test Item Value Reference Range Interpretation Comments albumin, serum (test code = 1751-7) 4.1 g/dL 3.5-5.5 [facility] Healthprotein, total, [id number] 16:45:00 Test Item Value Reference Range Interpretation Comments protein, total, serum (test code = 6.9 g/dL 6.0-8.5 2885-2) [facility] Centercalcium, [id number] 16:45:00 Test Item Value Reference Range Interpretation Comments calcium, serum (test code = 8) 8.8 mg/dL 8.7-10.2 [facility] Centercarbon dioxide, venous [id number] 16:45:00 Test Item Value Reference Range Interpretation Comments carbon dioxide, venous blood (test 23 mmol/L 20-29 code = 2026-1) [facility] Centerchloride, [id number] 16:45:00 Test Item Value Reference Range Interpretation Comments chloride, serum (test code = 108 mmol/L 96-106 H 2074-0) [facility] Centerpotassium, [id number] 16:45:00 Test Item Value Reference Range Interpretation Comments potassium, serum (test code = 4.1 mmol/L 3.5-5.2 2823-3) [facility] Centersodium, [id number] 16:45:00 Test Item Value Reference Range Interpretation Comments sodium, serum (test code = 2951-2) 142 mmol/L 134-144 [facility] Centerurea nitrogen/creatinine ratio, [id number] 16:45:00 Test Item Value Reference Range Interpretation Comments urea nitrogen/creatinine ratio, serum 12 - (test code = 3097-3) [facility] CentereGFR if Bpnwzbka5322-68-63 16:45:00 Test Item Value Reference Range Interpretation Comments eGFR if 154 >59 (test code = 18245-3) mL/min/((173/100).m2) [facility] CenterEstimated Glomerular Filtration Rate (calc)2018-07-13 16:45:00 Test Item Value Reference Range Interpretation Comments Estimated Glomerular 133 >59 Filtration Rate (calc) mL/min/((173/100).m2 (test code = 04177-0) ) [facility] Centercreatinine, [id number] 16:45:00 Test Item Value Reference Range Interpretation Comments creatinine, serum (test code = 0.59 mg/dL 0.57-1.00 2160-0) [facility] Centerurea nitrogen, [id number] 16:45:00 Test Item Value Reference Range Interpretation Comments urea nitrogen, blood (test code = 7 mg/dL 6-20 3094-0) [facility] Centerblood glucose, [id number] 16:45:00 Test Item Value Reference Range Interpretation Comments blood glucose, random (test code = 82 mg/dL 65-99 2339-0) [facility] CenterNeisseria gonorrhoeae DNA [id number] 14:22:00 Test Item Value Reference Range Interpretation Comments Neisseria gonorrhoeae DNA probe Negative Negative (test code = 40919-9) [facility] Centerchlamydia DNA [id number] 14:22:00 Test Item Value Reference Range Interpretation Comments chlamydia DNA probe (test code = Negative Negative 46602-7) [facility] Centerthyroid stimulating hormone, [id number] 10:10:00 Test Item Value Reference Range Interpretation Comments thyroid stimulating hormone, 1.420 u[iU]/mL 0.450-4.500 serum (test code = 3016-3) [facility] Healthprolactin, [id number] 10:10:00 Test Item Value Reference Range Interpretation Comments prolactin, serum (test code = 25.1 ng/mL 4.8-23.3 H 2842-3) [facility] Centerimmature granulocytes, percentage of total cells, blood 2018-07-07 10:10:00 Test Item Value Reference Range Interpretation Comments immature granulocytes, percentage of 0 % total cells, blood (test code = 16249-1) [facility] Centerbasophil count, krjlrwgl1977-49-26 10:10:00 Test Item Value Reference Range Interpretation Comments basophil count, absolute (test 0.0 x10E3/uL 0.0-0.2 code = 31910-7) [facility] CenterEosinophil Absolute [id number] 10:10:00 Test Item Value Reference Range Interpretation Comments Eosinophil Absolute Count (test 0.1 X10E3/UL 0.0-0.4 code = 32305-4) [facility] Centermonocyte count, blood, caqozivtq4664-68-53 10:10:00 Test Item Value Reference Range Interpretation Comments monocyte count, blood, automated 0.5 X10E3/UL 0.1-0.9 (test code = 742-7) [facility] Centerlymphocyte count, blood, [id number] 10:10:00 Test Item Value Reference Range Interpretation Comments lymphocyte count, blood, 0.8 X10E3/UL 0.7-3.1 automated (test code = 731-0) [facility] CenterAbsolute Wgzylsvrdjs5628-68-63 10:10:00 Test Item Value Reference Range Interpretation Comments Absolute Neutrophils (test code 2.9 X10E3/UL 1.4-7.0 = 05513-4) [facility] Centerbasophils as percent of blood otyjannblb0799-07-11 10:10:00 Test Item Value Reference Range Interpretation Comments basophils as percent of blood 0 % leukocytes (test code = 707-0) [facility] Centereosinophils as percent of blood hmvbsoszze3257-99-63 10:10:00 Test Item Value Reference Range Interpretation Comments eosinophils as percent of blood 3 % leukocytes (test code = 713-8) [facility] Centermonocytes as percent of blood mpiybduumm7607-16-93 10:10:00 Test Item Value Reference Range Interpretation Comments monocytes as percent of blood 11 % leukocytes (test code = 5905-5) [facility] Centerlymphocytes as percent of blood iytyawcvzm5314-05-35 10:10:00 Test Item Value Reference Range Interpretation Comments lymphocytes as percent of blood 19 % leukocytes (test code = 736-9) [facility] Centerneutrophils as percent of blood zzbqaeesam1415-92-87 10:10:00 Test Item Value Reference Range Interpretation Comments neutrophils as percent of blood 67 % leukocytes (test code = 770-8) [facility] Centerplatelet [id number] 10:10:00 Test Item Value Reference Range Interpretation Comments platelet count (test code = 195 X10E3/UL 150-379 777-3) [facility] Centerred blood cell distribution qcosw1222-00-20 10:10:00 Test Item Value Reference Range Interpretation Comments red blood cell distribution width 16.1 % 12.3-15.4 H (test code = 788-0) [facility] corpuscular hemoglobin concentration, [id number] 10:10:00 Test Item Value Reference Range Interpretation Comments mean corpuscular hemoglobin 32.0 G/DL 31.5-35.7 concentration, RBC (test code = 786-4) [facility] corpuscular hemoglobin, [id number] 10:10:00 Test Item Value Reference Range Interpretation Comments mean corpuscular hemoglobin, RBC 26.8 pg 26.6-33.0 (test code = 785-6) [facility] corpuscular volume, [id number] 10:10:00 Test Item Value Reference Range Interpretation Comments mean corpuscular volume, RBC (test code 84 fL 79-97 = 787-2) [facility] Centerhematocrit, [id number] 10:10:00 Test Item Value Reference Range Interpretation Comments hematocrit, blood (test code = 4544-3) 35.9 % 34.0-46.6 [facility] Centerhemoglobin, [id number] 10:10:00 Test Item Value Reference Range Interpretation Comments hemoglobin, blood (test code = 11.5 g/dL 11.1-15.9 718-7) [facility] Centererythrocyte (RBC) [id number] 10:10:00 Test Item Value Reference Range Interpretation Comments erythrocyte (RBC) count (test 4.29 X10E6/UL 3.77-5.28 code = 789-8) [facility] Centerleukocyte count, [id number] 10:10:00 Test Item Value Reference Range Interpretation Comments leukocyte count, blood (test 4.3 X10E3/UL 3.4-10.8 code = 6690-2) [facility]
--- NOTE | 2020-04-24 12:12 | RAD REPORT ---
EXAM DESCRIPTION: CT - CTHCSPWOC - 04/24/2020 11:47 am CLINICAL HISTORY: trauma, seizure, fall with head and neck injury COMPARISON: No comparisons TECHNIQUE: Axial 5 mm thick images of the head were obtained. Axial 2 mm thick images of the cervic al spine were obtained with sagittal and coronal reconstruction images generated and reviewed. All CT scans are performed using dose optimization technique as appropriate and may include automated exposure control or mA/KV adjustment according to patient size. FINDINGS: No intracranial hemorrhage, mass, edema or acute intracranial finding. No suspicion for ac [place] infarction. No extra-axial fluid collections. Mastoid air cells and paranasal sinuses are clear. No globe or orbit abnormality seen. Cervical body height and alignment are normal. No disk space narrowing. No fracture or acute bony abn ormality. Central canal detail is inherently limited. No paraspinal mass or hematoma. IMPRESSION: Negative CT head examination for acute or significant finding. Negative CT cervical spine examination for acute or significant finding.
[2020-04-24 12:20] LABS: Barbiturates NEGATIVE (NEGATIVE); Benzodiazepines NEGATIVE (NEGATIVE); Cocaine NEGATIVE (NEGATIVE); METHAMPHETAM NEGATIVE (NEGATIVE); Methadone NEGATIVE (NEGATIVE); Opiates NEGATIVE (NEGATIVE); Phencyclidine NEGATIVE (NEGATIVE); THC Cannibis POSITIVE (NEGATIVE)
[2020-04-24] MEDS ORDERED: NA CHLORIDE 0.9% 1,000 ML with FOLIC ACID 1 MG, THIAMINE HCL 100 MG, MULTIVITAMINS INJ ... IV SCH ×4 (12:30)
[2020-04-24 12:33] LABS: Basophils % 0.4 % (0-1.3); Hematocrit 36.8 % (36.0-45.0); Lymphocytes % 21.4 % (15.3-44.8); MPV 8.2 fL (7.6-11.3); RBC Red Blood Cell Count 4.41 M/uL (3.86-4.86)
[2020-04-24 12:42] LABS: Protime INR 0.97
[2020-04-24 12:53] LABS: ALT/SGPT 50 U/L (12-78); AST/SGOT 28 U/L (15-37); Albumin 3.9 g/dL (3.4-5.0); Alkaline Phosphatase 65 U/L (45-117); BUN Blood Urea Nitrogen 6 mg/dL (7-18); Bicarbonate 26 mmol/L (21-32); Bilirubin Direct 0.2 mg/dL (0-0.2); Bilirubin Total 0.5 mg/dL (0.2-1.0); Glucose Level 88 mg/dL (74-106); Potassium 3.3 mmol/L (3.5-5.1); Protein, Total 7.2 g/dL (6.4-8.2); Sodium Level 141 mmol/L (136-145)
[2020-04-24 13:02] LABS: Urine Blood 3+ (NEG); Urine Glucose NEGATIVE (NEG); Urine Protein NEGATIVE (NEG); Urine Specific Gravity 1.015 (1.005-1.030)
[2020-04-24] MEDS ORDERED: POTASSIUM CL SA 10 MEQ TAB PO ONE (13:47)
--- NOTE | 2020-04-24 13:47 | ER ---
Nurse's Notes [facility] Name: Ayah Flannery Age: 19 yrs Sex: Female : 2000 Arrival Date: 04/24/2020 Time: 11:23 Bed 16 Private MD: Diagnosis: Epilepsy and recurrent seizures Presentation: 04/24 11:24 Chief complaint: EMS states: Toned out for seizure, pt has a hx of epilepsy/ jl7 stress-induced seizures, last one was 2 months ago. Pt reported being stressed and was walking to the bathroom, fell and hit her head and had a seizure, A\T\Ox4 on arrival. Coronavirus screen: Client denies travel out of the [place] in the last 14 days. At this time, the client does not indicate any symptoms associated with coronavirus-19. Ebola Screen: No symptoms or risks identified at this time. 11:24 Method Of Arrival: EMS: [facility] 11:24 Initial Sepsis Screen: Does the patient meet any 2 criteria? No. Patient's initial jl7 sepsis screen is negative. Does the patient have a suspected source of infection? No. Patient's initial sepsis screen is negative. Risk Assessment: Do you want to hurt yourself or someone else? Patient reports no desire to harm self or others. Onset of symptoms was April 24, 2020. Care prior to arrival: None. Transition of care: patient was received from another setting of care (rehabilitation facility). 11:24 Acuity: CLAUDIA 3 jl7 Triage Assessment: 11:23 General: Appears in no apparent distress. uncomfortable, Behavior is cooperative, jl7 anxious. Pain: Complains of pain in STEVEN Pain currently is 8 out of 10 on a pain scale. Neuro: Level of Consciousness is awake, alert, obeys commands, Oriented to person, place, time, situation, Moves all extremities. Full function Gait is steady, Speech is normal, Facial symmetry appears normal. Cardiovascular: Patient's skin is warm and dry. Respiratory: Airway is patent Respiratory effort is even, unlabored, Respiratory pattern is regular, symmetrical. Derm: Skin is pink, warm \T\ dry. ACID CUTTER: 11:23 LMP 04/24/2020 jl7 Historical: - Allergies: 11:41 No Known Allergies; jl7 - Home Meds: 11:41 Reglan 10 mg Oral tab [Active]; sertraline 50 mg oral tab 1 tab once daily [Active]; jl7 pantoprazole 40 mg oral TbEC 1 tab once daily [Active]; Zofran (as hydrochloride) 4 mg Oral tab [Active]; levetiracetam 750 mg oral tab 1 tab 2 times per day [Active]; Primatene Asthma oral [Active]; promethazine 12.5 mg Oral tab [Active]; - PMHx: 11:41 Seizures; gastritis; Depression; jl7 - Immunization history:: Adult Immunizations unknown. - Social history:: Smoking status: Patient reports the use of cigarette tobacco products, 2 cigarettes/day, Patient uses alcohol, on a daily basis. last use Tuesday04-18-20. Screenin:26 Abuse screen: Denies threats or abuse. Denies injuries from another. Nutritional jl7 screening: No deficits noted. Tuberculosis screening: No symptoms or risk factors identified. Fall Risk Fall in past 12 months (25 points). Secondary diagnosis (15 points) seizures, IV access (20 points). Ambulatory Aid- None/Bed Rest/Nurse Assist (0 pts). Gait- Normal/Bed Rest/Wheelchair (0 pts) Mental Status- Oriented to own ability (0 pts). Total Pollock Fall Scale indicates High Risk Score (45 or more points). Fall prevention measures have been instituted. Side Rails Up X 2 Placed Close to Nursing Station Frequent Obs/Assessments Occuring Family Present and informed to notify staff if the need to leave the bedside As available patient and family educated on Fall Prevention Program and Strategies. Assessment: 11:30 General: See triage assessment. jl7 12:30 Reassessment: Patient appears in no apparent distress at this time. No changes from jl7 previously documented assessment. Patient and/or family updated on plan of care and expected duration. Pain level reassessed. Patient is alert, oriented x 3, equal unlabored respirations, skin warm/dry/pink. 13:30 Reassessment: Patient appears in no apparent distress at this time. No changes from jl7 previously documented assessment. Patient and/or family updated on plan of care and expected duration. Pain level reassessed. Patient is alert, oriented x 3, equal unlabored respirations, skin warm/dry/pink. 13:56 Reassessment: Pt will be discharged once fluids are done infusing. jl7 Vital Signs: 11:24 BP 134 / 92; Pulse 81; Resp 17 S; Temp 98.1(O); Pulse Ox 100% on R/A; Weight 86.18 kg jl7 (R); Height 5 ft. 6 in. (167.64 cm) (R); Pain 8/10; 12:26 BP 125 / 76; Pulse 63; Resp 17; Pulse Ox 100% ; jl7 13:56 BP 116 / 75; Pulse 74; Resp 15; Pulse Ox 100% ; jl7 11:24 Body Mass Index 30.67 (86.18 kg, 167.64 cm) jl7 Ester Coma Score: 11:23 Eye Response: spontaneous(4). Verbal Response: oriented(5). Motor Response: obeys jl7 commands(6). Total: 15. ED Course: 11:23 Patient arrived in ED. jl7 11:23 Caleb Napier PA is PHCP. jr8 11:23 Malcom Connors MD is Attending Physician. jr8 11:23 Hilda Shine RN is Primary Nurse. jl7 11:23 Arm band placed on right wrist. jl7 11:25 Patient has correct armband on for positive identification. Placed in gown. Bed in low jl7 position. Call light in reach. Side rails up X2. Seizure precautions initiated. 11:25 cardiac monitor on. Pulse ox on. NIBP on. Warm blanket given. jl7 11:38 Triage completed. jl7 11:48 CT Head C Spine In Process Unspecified. EDMS 12:00 Urine collected: clean catch specimen, clear. jl7 12:15 Initial lab(s) drawn, by hi, sent to lab. Inserted saline lock: 20 gauge in left wrist, jl7 using aseptic technique. Blood collected. 12:20 EKG done, by ED staff, reviewed by Caleb CORTEZ. jl7 13:56 No provider procedures requiring assistance completed. jl7 14:33 IV discontinued, intact, bleeding controlled, No redness/swelling at site. Pressure jl7 dressing applied. Administered Medications: 12:26 Drug: Banana Bag - (NS 0.9% 1000 ml, foLIC Acid 1 mg, Thiamine 100 mg, Multivitamin 1 jl7 amp) Route: IV; Rate: calculated rate; Site: left wrist; 14:30 Follow up: Response: No adverse reaction; IV Status: Completed infusion; IV Intake: jl7 1000ml 13:35 Drug: Potassium Chloride 20 mEq Route: PO; jl7 13:57 Follow up: Response: No adverse reaction jl7 Intake: 14:30 IV: 1000ml; Total: 1000ml. jl7 Outcome: 13:47 Discharge ordered by MD. serna 14:33 Discharged to Rehab Facility jl7 14:33 Condition: stable 14:33 Discharge instructions given to patient, Instructed on discharge instructions, follow up and referral plans. Demonstrated understanding of instructions, follow-up care. 14:38 Patient left the ED. hb Signatures: Dispatcher [employer] EDMS Caleb Napier PA PA jr8 Amira Huffman RN RN Hilda Shine RN RN jl7
--- NOTE | 2020-04-24 13:47 | EDPHYS ---
Physician Documentation [facility] Name: Ayah Flannery Age: 19 yrs Sex: Female : 2000 Arrival Date: 04/24/2020 Time: 11:23 Bed 16 Private MD: ED Physician Malcom Connors HPI: 04/24 13:53 This 19 yrs old Female presents to ER via EMS with complaints of Seizure. jr8 13:53 The patient presents after having a single isolated seizure. Character of seizure(s): jr8 Motor activity: the motor activity is unknown, Incontinence: none, Apnea: the patient did not experience apnea, Circulation: the patient did not experience evidence of pulse disturbance, Eye movements: are unknown. Seizure onset: just prior to arrival. Context: the seizure(s) was witnessed, Rehab staff, occurred Rehab facility. Seizure Hx: Original onset: longstanding. Current symptoms: headache, that is moderate. The patient has experienced similar episodes in the past, a few times. The patient has been recently seen by a physician:. Patient stated that she recently went into rehab for alcohol abuse. History of seizures in the past. Stated that when she is extra stressed she has seizures. Has been compliant with her Keppra. Stated that she found out she couldn't talk to her psychiatrist today and was aggravated. Had seizure and hit head an neck. Pain since incident. 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 - Social history:: Smoking status: Patient reports the use of cigarette tobacco products, 2 cigarettes/day, Patient uses alcohol, on a daily basis. last use Tuesday04-18-20. ROS: 13:53 Neck: Positive for pain with movement, tenderness, bony tenderness. jr8 13:53 Neuro: Positive for headache, seizure activity. 13:53 All other systems are negative. Exam: 13:53 Head/Face: Normocephalic, atraumatic. Eyes: Pupils equal round and reactive to light, jr8 extra-ocular motions intact. Lids and lashes normal. Conjunctiva and sclera are non-icteric and not injected. Cornea within normal limits. Periorbital areas with no swelling, redness, or edema. ENT: Nares patent. No nasal discharge, no septal abnormalities noted. Tympanic membranes are normal and external auditory canals are clear. Oropharynx with no redness, swelling, or masses, exudates, or evidence of obstruction, uvula midline. Mucous membranes moist. Cardiovascular: Regular rate and rhythm with a normal S1 and S2. No gallops, murmurs, or rubs. Normal PMI, no JVD. No pulse deficits. Respiratory: Lungs have equal breath sounds bilaterally, clear to auscultation and percussion. No rales, rhonchi or wheezes noted. No increased work of breathing, no retractions or nasal flaring. Abdomen/GI: Soft, non-tender, with normal bowel sounds. No distension or tympany. No guarding or rebound. No evidence of tenderness throughout. Back: No spinal tenderness. No costovertebral tenderness. Full range of motion. Skin: Warm, dry with normal turgor. Normal color with no rashes, no lesions, and no evidence of cellulitis. MS/ Extremity: Pulses equal, no cyanosis. Neurovascular intact. Full, normal range of motion. Neuro: Awake and alert, GCS 15, oriented to person, place, time, and situation. Cranial nerves II-XII grossly intact. Motor strength 5/5 in all extremities. Sensory grossly intact. Cerebellar exam normal. Normal gait. 13:53 Neck: External neck: is normal, C-spine: vertebral tenderness, that is mild, appreciated at C5, C6 and C7, Thyroid: appears normal, Trachea: is midline with no obvious abnormalities, ROM/movement: pain, that is mild, with any movement, limited range of motion, is not appreciated, Meningeal signs: are not present, nuchal rigidity, is not appreciated, Lymph nodes: no appreciated lymphadenopathy. Vital Signs: 11:24 BP 134 / 92; Pulse 81; Resp 17 S; Temp 98.1(O); Pulse Ox 100% on R/A; Weight 86.18 kg jl7 (R); Height 5 ft. 6 in. (167.64 cm) (R); Pain 8/10; 12:26 BP 125 / 76; Pulse 63; Resp 17; Pulse Ox 100% ; jl7 13:56 BP 116 / 75; Pulse 74; Resp 15; Pulse Ox 100% ; jl7 11:24 Body Mass Index 30.67 (86.18 kg, 167.64 cm) jl7 Ester Coma Score: 11:23 Eye Response: spontaneous(4). Verbal Response: oriented(5). Motor Response: obeys jl commands(6). Total: 15. MDM: 11:23 Patient medically screened. jr8 13:45 Data reviewed: vital signs, nurses notes, lab test result(s), radiologic studies, CT jr8 scan, and as a result, I will discharge patient. Data interpreted: Pulse oximetry: on room air is 100 %. Interpretation: normal. Counseling: I had a detailed discussion with the patient and/or guardian regarding: the historical points, exam findings, and any diagnostic results supporting the discharge/admit diagnosis, lab results, radiology results, the need for outpatient follow up, a family practitioner, to return to the emergency department if symptoms worsen or persist or if there are any questions or concerns that arise at home. Response to treatment: the patient's symptoms have resolved after treatment. ED course: No seizures while in ED. Feeling better. VS. Blood work without concerning finding. Eating and drinking without any problem. Will d/c back to Rehab . 04/24 11:24 Order name: Acetaminophen; Complete Time: 13:16 04/24 11:24 Order name: Basic Metabolic Panel; Complete Time: 13:04/24 11:24 Order name: CBC with Diff; Complete Time: 13:04/24 11:24 Order name: ETOH Level; Complete Time: 13:04/24 11:24 Order name: Hepatic Function; Complete Time: 13:04/24 11:24 Order name: PT-INR; Complete Time: 13:04/24 11:24 Order name: Ptt, Activated; Complete Time: 13:00 04/24 11:24 Order name: Salicylate; Complete Time: 13:16 04/24 11:24 Order name: Urine Drug Screen; Complete Time: 13:00 04/24 11:24 Order name: CT Head C Spine; Complete Time: 12:14 04/24 12:10 Order name: Urine Dipstick--Ancillary (enter results); Complete Time: 13:03 [facility] 04/24 12:10 Order name: Urine --Ancillary (enter results); Complete Time: 13:03 04/24 11:24 Order name: Urine Test (obtain specimen); Complete Time: 12:06 04/24 11:24 Order name: EKG; Complete Time: 11:29 04/24 11:24 Order name: EKG - Nurse/Tech; Complete Time: 12:18 04/24 11:24 Order name: IV Saline Lock; Complete Time: 12:18 04/24 11:24 Order name: Labs collected and sent; Complete Time: 12:18 04/24 11:24 Order name: Urine Dipstick-Ancillary (obtain specimen); Complete Time: 12:06 04/24 13:40 Order name: Diet Regular; Complete Time: 13:41 jl7 Administered Medications: 12:26 Drug: Banana Bag - (NS 0.9% 1000 ml, foLIC Acid 1 mg, Thiamine 100 mg, Multivitamin 1 jl7 amp) Route: IV; Rate: calculated rate; Site: left wrist; 14:30 Follow up: Response: No adverse reaction; IV Status: Completed infusion; IV Intake: jl7 1000ml 13:35 Drug: Potassium Chloride 20 mEq Route: PO; jl7 13:57 Follow up: Response: No adverse reaction jl7 Disposition: 22:17 Co-signature as Attending Physician, Malcom Connors MD I agree with the assessment and kdr plan of care. Disposition: 04/24/20 13:47 Discharged to Home. Impression: Epilepsy and recurrent seizures. - Condition is Stable. - Discharge Instructions: Seizure, Adult. - Medication Reconciliation Form, Thank You Letter, Antibiotic Education, Prescription Opioid Use form. - Follow up: Private Physician; When: 5 - 6 days; Reason: Recheck today's complaints, Continuance of care, Re-evaluation by your physician. - Problem is new. - Symptoms have improved. Signatures: Dispatcher [employer] EDMS Malcom Connors MD MD kdr Roszak, Josh, PA PA jr8 Amira Huffman, RN RN Hilda Shine RN RN jl7 Corrections: (The following items were deleted from the chart) 14:38 13:47 04/24/2020 13:47 Discharged to Home. Impression: Epilepsy and recurrent seizures. hb Condition is Stable. Forms are Medication Reconciliation Form, Thank You Letter, Antibiotic Education, Prescription Opioid Use. Follow up: Private Physician; When: 5 - 6 days; Reason: Recheck today's complaints, Continuance of care, Re-evaluation by your physician. Problem is new. Symptoms have improved. jr8
[2020-04-24 14:50] VITALS: O2SAT 100
[2020-04-24 14:52] VITALS: BP 116/75
== END 2020-04-24 14:38 | disposition home or self-care (01) ==
LOC: ER 11:25
DX: G40.909 Epilepsy, unspecified, not intractable, without status epilepticus (principal); F17.210 Nicotine dependence, cigarettes, uncomplicated; F32.9 Major depressive disorder, single episode, unspecified
CPT/HCPCS: 36415; 70450; 72125; 80048; 80076; 80307; 80320; 80329; 81003; 81025; 85025; 85610; 85730; 93005; 96365; 96366; 99285; J3411; J7030